=== PATIENT | male | born 1950 | race Caucasian/White ===

== ENCOUNTER 2018-12-26 18:09 | Inpatient (IN) ==
--- NOTE | 2018-12-26 20:25 | Diag Imaging Result Doc PS360 ---
CHEST-1 VIEW - 12/26/2018 INDICATION: hypoxia COMPARISON: 06/21/2015 FINDINGS: There is some multifocal linear atelectasis in the lung bases. No infiltrates or edema. No pneumothorax or pleural effusion. Heart size is top normal. IMPRESSION: Linear atelectasis in the lung bases. Electronically signed by Rojas Harrison 12/26/2018 8:23 PM
[2018-12-26 20:35] LABS: ALLEN TEST YES; BE 7.6 mmoll (-3.0-3.0); BLOOD TYPE ARTERIAL; HCO3-(ACT) 30.8 mmoll (20.0-26.0); METHB 1.1 % (0.0-1.5); O2(CT) 20.4 mL/dL (15.0-23.0); O2HB 96.6 % (95.0-99.0); PO2(98.6) 163 mmHg (60-100); SAMPLE BLOOD; SAO2 99.5 % (95.0-100.0); THB 14.8 g/dL (11.5-17.4); pH(98.6) 7.33 (7.35-7.45)
[2018-12-26 20:37] LABS: MODALITY COOL AEROSOL
[2018-12-26 20:38] LABS: PCO2(98.6) 69 mmHg (35-45)
[2018-12-26 20:58] LABS: INR 1.01; PROTIME 14.2 Seconds (11.0-16.0)
[2018-12-26 20:59] LABS: PTT 28.4 Seconds (22.3-41.8)
[2018-12-26 21:06] LABS: AGAP 13; ALB/GLOB RATIO 1.1; ALBUMIN 3.7 g/dL (3.5-5.0); ALKALINE PHOSPHATASE 157 U/L (32-122); BUN 14 mg/dL (8-22); CALCIUM 8.9 mg/dL (8.8-10.2); CHLORIDE 95 mmol/L (98-107); CK PROFILE 84 U/L (24-204); COSMO 283; ESTIMATED GFR > 60; GLUCOSE 217 mg/dL (70-104); GOT 28 U/L (10-34); GPT 36 U/L (10-44); POTASSIUM 4.5 mmol/L (3.5-5.1); SODIUM 138 mmol/L (136-145); TCO2 30 mmol/L (25-35); TOTAL BILIRUBIN 0.37 mg/dL (0.20-1.00); TOTAL PROTEIN 7.2 g/dL (6.3-8.3)
[2018-12-26 21:16] LABS: BASO# 0.02 X1000 (0.0-0.2); BASO% 0.1 % (0.0-0.8); HEMATOCRIT 45.3 % (42.0-52.0); HEMOGLOBIN 14.4 g/dL (14.0-18.0); IMM GRAN# 0.02 X1000 (0.0-0.04); IMM GRAN% 0.1 % (0.0-0.5); LYMPH# 1.03 X1000 (1.2-3.4); LYMPH% 6.8 % (20.5-51.1); MCH 28.3 PG (27-31); MCHC 31.8 g/dL (33-37); MCV 89.2 FL (81-99); MONO# 0.17 X1000 (0.11-0.59); MONO% 1.1 % (1.7-9.3); MPV 10.1 FL (7.4-10.4); NEUT# 13.85 X1000 (1.4-6.5); NEUT% 91.9 % (42.2-75.2); PLT 238 X1000 (130-400); RBC 5.08 XMIL (4.7-6.1); RDW 13.4 % (11.5-14.5); WBC 15.09 X1000 (4.8-10.8)
[2018-12-26] MEDS ORDERED: NITROGLYCERIN SL PRN (21:37)
[2018-12-26] MEDS ORDERED: ROCEPHIN 1 GM in NS 50 ML IV ONE (21:40)
[2018-12-26 21:43] LABS: LYMPHS 8 % (21-51); MONO 1 % (1-9); SEGS 91 % (42-75)
--- NOTE | 2018-12-26 22:12 | PROGRESS NOTE ---
DATE: 12/26/2018 SUBJECTIVE: A 68-year-old status post septoplasty and endoscopic sinus surgery. Postoperatively had persistent hypoxia and was admitted for observation overnight. OBJECTIVE: On physical exam, he has been doing well, has minimal bleeding from the nasal cavity. It is appropriate for postoperative nasal surgery. He is alert and without nausea and vomiting. IMPRESSION: Satisfactory postop. PLAN: Continue O2 monitoring during the evening, hopefully discharge tomorrow depending on medical evaluation. cc: MD Faustino Patel MD
--- NOTE | 2018-12-26 22:22 | HISTORY AND PHYSICAL ---
CHIEF COMPLAINT: Shortness of breath. HISTORY OF PRESENT ILLNESS: Mr. Robles is a 68-year-old white gentleman, problem with chronic sinus infection and sinusitis. Patient went for sinus surgery today. After surgery, patient's oxygen saturation was staying low. The patient also had some oozing from the sinuses and ENT surgeon and forgeman helper decided to admit the patient for observation, and I was called to admit the patient for the same. The patient denied any chest pain. No fever or chills. The patient was requiring higher concentration of oxygen to keep his O2 saturation satisfactory. He denied any cough or expectoration. The patient had nasal packing done by history, and he had some dressing on his nose. No unusual cough, expectoration, or hemoptysis. Denied any fever or chills. No abdominal pain, nausea, vomiting. No diarrhea, blood, or mucus in the stool. No history suggestive of DVT or pulmonary embolism. The patient does have a complex medical history in the form of coronary artery disease and stent placement, morbid obesity, recurrent sinus infections and allergies, osteoarthritis, dyspnea on exertion. The patient also has IDDM. He denied any dysuria or hematuria. No diarrhea alternating with constipation. No dysphagia or odynophagia. ALLERGIES: No known drug allergy. MEDICATIONS: Include Glucophage, diltiazem, Coreg, Zestoretic, doxazosin, lovastatin, aspirin. PAST MEDICAL HISTORY: The patient had back surgery done in March The patient had heart attack and stent placement, morbid obesity, osteoarthritis, NIDDM, hypertension, hyperlipidemia, history suggestive of BPH. PERSONAL HISTORY: , lives with the . Nonsmoker. Denied alcohol or substance abuse. FAMILY HISTORY: Significant for heart disease and breast cancer. REVIEW OF SYSTEMS: As per HPI. The patient does have dyspnea on exertion, arthritic pain in the back and the knee, obesity, at times polyuria and polydipsia. Review of systems as per HPI. PHYSICAL EXAMINATION: GENERAL: Elderly white gentleman, morbidly obese, in mild distress. VITAL SIGNS: Noted. SKIN: No rash or petechiae. HEENT: Head atraumatic, normocephalic. [place] conjunctivae. Anicteric sclerae. Pupils reacting to light. NECK: Supple. No JVD, thyromegaly or lymphadenopathy. CHEST: Bibasilar crepitation. No rales. CARDIOVASCULAR: S1 and S2 heard. No gallop or thrill. ABDOMEN: Soft, globular. Bowel sounds present. No organomegaly or mass. EXTREMITIES: No cyanosis, clubbing. Minimal swelling. No acute DVT. CENTRAL NERVOUS SYSTEM: Alert, awake, able to move all 4 limbs. Crepitation in both the knee joints. The patient does have dressing on his nose. CONSIDERATION: Patient admitted with hypoxemia. His other problems include: 1. Hypertension. 2. Coronary artery disease. 3. Morbid obesity. 4. Insulin-dependent diabetes mellitus. 5. Gastritis and reflux disease. 6. Low back pain. 7. Benign prostatic hypertrophy. PLAN: Admit the patient. Oxygen. We will monitor O2 saturation continuously. Bronchodilator treatment. Close observation. Continue home medicine. I did check his labs. The patient does have leukocytosis with left shift. Electrolytes were fairly benign. PT and PTT: INR was 1.01. PTT was 28.4. Blood gas pH 7.33, pCO2 of 69, pO2 was 163. I decreased FiO2 to 70%. Started patient on bronchodilator treatment. We will monitor his Accu-Chek. ProBNP was 469. Overall plan discussed at length with patient and the , and they are in agreement. cc: MD Faustino Cameron MD MTDD
[2018-12-26] MEDS: DUONEB (A & A) INH SCH (23:12)
[2018-12-27] MEDS: TYLENOL PO PRN (00:44)
[2018-12-27] MEDS: DUONEB (A & A) INH SCH ×5 (03:09→20:10)
[2018-12-27] MEDS: CARDURA PO SCH ×3 (04:01→22:06)
--- NOTE | 2018-12-27 07:08 | EKG Report ---
Test Performed on : 12/26/2018 8:29:09 PM Test Reason : hypoxia Blood Pressure : / mmHG Vent. Rate : 099 BPM Atrial Rate : 099 BPM P-R Int : 168 ms QRS Dur : 094 ms QT Int : 380 ms P-R-T Axes : 050 009 055 degrees QTc Int : 487 ms Sinus rhythm. with occasional premature ventricular complexes. Cannot rule out Inferior infarct , age undetermined Abnormal ECG When compared with ECG of 21-JUN-2015 09:40, No significant change was found Confirmed by Carissa JARA, [place] ([id number]) on 12/27/2018 8:43:50 AM
--- NOTE | 2018-12-27 07:36 | PROGRESS NOTE ---
DATE: 12/27/2018 SUBJECTIVE: Postop today #1. Patient doing very well. No significant bleeding. There is a ooze from the nasal cavity which is normal postoperative oozing. The seems to be feeling well. IMPRESSION: Satisfactory postoperative plan. From a surgical standpoint he is ready to go home. Will await clearance from a pulmonary status. cc: MD Faustino Patel MD
[2018-12-27 07:56] LABS: BASO# 0.01 X1000 (0.0-0.2); BASO% 0.1 % (0.0-0.8); HEMATOCRIT 43.1 % (42.0-52.0); HEMOGLOBIN 13.7 g/dL (14.0-18.0); IMM GRAN# 0.02 X1000 (0.0-0.04); IMM GRAN% 0.2 % (0.0-0.5); LYMPH# 0.94 X1000 (1.2-3.4); LYMPH% 7.3 % (20.5-51.1); MCH 28.7 PG (27-31); MCHC 31.8 g/dL (33-37); MCV 90.2 FL (81-99); MONO# 0.64 X1000 (0.11-0.59); MONO% 4.9 % (1.7-9.3); MPV 10.2 FL (7.4-10.4); NEUT# 11.32 X1000 (1.4-6.5); NEUT% 87.5 % (42.2-75.2); PLT 243 X1000 (130-400); RBC 4.78 XMIL (4.7-6.1); RDW 13.6 % (11.5-14.5); WBC 12.93 X1000 (4.8-10.8)
[2018-12-27 08:35] LABS: BANDS 4 % (0-1); LYMPHS 8 % (21-51); MONO 2 % (1-9); SEGS 86 % (42-75)
[2018-12-27 08:37] LABS: AGAP 12; ALB/GLOB RATIO 1.3; ALKALINE PHOSPHATASE 141 U/L (32-122); BUN 16 mg/dL (8-22); CALCIUM 8.8 mg/dL (8.8-10.2); CHLORIDE 95 mmol/L (98-107); COSMO 283; CREATININE 0.9 mg/dL (0.7-1.2); ESTIMATED GFR > 60; GLUCOSE 173 mg/dL (70-104); GOT 22 U/L (10-34); GPT 31 U/L (10-44); POTASSIUM 4.4 mmol/L (3.5-5.1); SODIUM 139 mmol/L (136-145); TCO2 32 mmol/L (25-35); TOTAL BILIRUBIN 0.26 mg/dL (0.20-1.00)
[2018-12-27] MEDS: PRINZIDE 20/12.5MG PO SCH (10:10)
[2018-12-27] MEDS: GLUCOPHAGE PO SCH ×2 (10:11→18:05)
[2018-12-27] MEDS: THERA M PLUS PO SCH (10:11)
[2018-12-27] MEDS: COREG PO SCH ×2 (10:11→22:07)
[2018-12-27] MEDS: CARDIZEM CD PO SCH ×2 (10:20→22:06)
[2018-12-27] MEDS: MEVACOR PO SCH (18:06)
[2018-12-27] MEDS ORDERED: SODIUM CHLORIDE 0.9% INJ SCH (21:15)
--- NOTE | 2018-12-27 21:56 | PROGRESS NOTE ---
DATE: 12/27/2018 SUBJECTIVE: A 68-year-old white male admitted to the hospital after sinus surgery with hypoxemia. I appreciate Dr. Godfrey and Dr. Prescott. The patient is sitting in upright position, awake. His nose is packed with a gauze pack. Some drainage noted. He is also on aerosol breathing to the mouth. REVIEW OF SYSTEMS: None reported. PAST MEDICAL HISTORY: Reviewed. PAST SURGICAL HISTORY: Reviewed. MEDICINES: Reviewed. ALLERGIES: Not known. OBJECTIVE: Vital signs: Temperature is 97 degrees, pulse is 80, blood pressure 146/91, on the mask 91% and morbidly obese. Chest: Bilateral air entry. Cardiovascular: Heart sounds are regular with a very distant murmur in the aortic area. Abdomen: Belly is soft, obese, nontender. Good bowel sounds. No obvious neurological deficits. INVESTIGATIONS: CBC: White cell count 12.9, hematocrit 43, platelets 243,000. ABG: pH is 7.33, pCO2 69, and pO2 163. SMA 7 is normal, glucose 173. LFTs were normal. Chest x-ray: Linear atelectasis in the lung bases. ASSESSMENT AND PLAN: 1. Status post sinus surgery with hypoxemia. Incentive spirometry. Reconcile home medications. 2. Type 2 diabetes on metformin. 3. Right internal carotid stenosis. Hemodynamics significance under the care of Dr. Collazo. 4. Aortic stenosis, stable, under the care of Dr. Verdugo. Continue present treatment. The patient is encouraged to use incentive spirometry. 5. He is high risk for deep venous thrombosis. Continue on Lovenox as well as Protonix. LEVEL OF DOCUMENTATION: 35 minutes. cc: Faustino Nelson MD
[2018-12-27] MEDS: PROTONIX IV SCH (22:06)
[2018-12-27] MEDS: LOVENOX SUBQ SCH (22:07)
[2018-12-28] MEDS: DUONEB (A & A) INH SCH ×7 (01:25→23:45)
[2018-12-28] MEDS ORDERED: ATIVAN IV PRN (03:43)
[2018-12-28] MEDS ORDERED: ATIVAN IV ONE (03:43)
[2018-12-28 06:42] LABS: ALLEN TEST YES; BE 11.2 mmoll (-3.0-3.0); BLOOD TYPE ARTERIAL; HCO3-(ACT) 33.7 mmoll (20.0-26.0); PO2(98.6) 129 mmHg (60-100); SAMPLE BLOOD; pH(98.6) 7.46 (7.35-7.45)
[2018-12-28 06:43] LABS: MODALITY COOL AEROSOL; PCO2(98.6) 52 mmHg (35-45)
[2018-12-28] MEDS: PRINZIDE 20/12.5MG PO SCH (08:51)
--- NOTE | 2018-12-28 08:51 | EKG Report ---
Test Performed on : 12/28/2018 08:42:05 AM Test Reason : chest pain Blood Pressure : / mmHG Vent. Rate : 091 BPM Atrial Rate : 091 BPM P-R Int : 000 ms QRS Dur : 098 ms QT Int : 364 ms P-R-T Axes : 000 017 089 degrees QTc Int : 447 ms Accelerated Junctional rhythm. with occasional premature ventricular complexes. ST & T wave abnormality, consider lateral ischemia Abnormal ECG When compared with ECG of 26-DEC-2018 20:29, Junctional rhythm. has replaced Sinus rhythm. Confirmed by Carissa JARA, Stanley ([id number]) on 12/28/2018 8:58:13 AM
[2018-12-28] MEDS: GLUCOPHAGE PO SCH ×2 (08:52→18:24)
[2018-12-28] MEDS: CARDIZEM CD PO SCH ×2 (08:52→21:35)
[2018-12-28] MEDS: COREG PO SCH ×2 (08:52→21:35)
[2018-12-28] MEDS: THERA M PLUS PO SCH (08:52)
[2018-12-28] MEDS: CARDURA PO SCH ×2 (08:52→21:36)
[2018-12-28 09:40] LABS: CK INDEX 1.8 (0.0-2.5); CK-MB 7.9 ng/mL (0.0-5.0)
--- NOTE | 2018-12-28 14:54 | CONSULTATION ---
DATE OF CONSULTATION: 12/28/2018 IMPRESSIONS: 1. Shortness of breath and hypoxia. Suspect more likely to be due to upper respiratory issues and possible obstructive sleep apnea. Recent cardiology evaluation demonstrated normal left ventricular function and mild aortic stenosis. 2. Status post sinus surgery. 3. Mild coronary atherosclerosis. Patient continues without angina. 4. Morbid obesity. 5. Probable obstructive sleep apnea. 6. Hyperlipidemia. 7. Bilateral carotid disease. 8. Peripheral vascular disease. RECOMMENDATIONS: 1. Obtain PA and lateral chest x-ray. 2. Continue current cardiovascular regimen, unchanged. HISTORY: This 68-year-old white male with a past history of mild coronary atherosclerosis, mild aortic stenosis, morbid obesity, hypertension, and peripheral vascular disease was admitted recently for further management of chronic sinus infection and sinusitis. He has had sinus surgery and his nose is packed. He said some difficulty with hypoxemia postoperatively. He was admitted for observation. There has been no orthopnea nor chest discomfort. He denies any cough. He has history of mild coronary atherosclerosis. He has not had any angina. He recently had echocardiography which indicated normal left ventricular ejection fraction and mild aortic stenosis with a calculated aortic valve area 1.6 cm2. PAST MEDICAL HISTORY: 1. Mild coronary atherosclerosis. 2. Hypertension. 3. Morbid obesity. 4. Type 2 diabetes mellitus, requiring insulin for control. 5. Gastroesophageal reflux disease. 6. Chronic back disorder. 7. Mild aortic stenosis. 8. Peripheral vascular disease including bilateral carotid artery disease. This has been followed by Dr. nesbitt. PAST SURGICAL HISTORY: 1. Previous coronary angioplasty. 2. Unspecified back surgery. ALLERGIES: No known drug allergies. MEDICATIONS PRIOR TO ADMISSION: As listed. SOCIAL HISTORY: He is and lives with his . He does not smoke or use alcohol. FAMILY HISTORY: Positive for coronary disease. REVIEW OF SYSTEMS: Pulmonary: Noteworthy for some shortness of breath. There has been no cough. Gastrointestinal: Noncontributory beyond history present illness. Constitutional: Noncontributory beyond history present illness with 14 total systems reviewed. PHYSICAL EXAMINATION: General: Reveals a morbidly obese, older white male in no distress on supplemental oxygen. Vital signs: Blood pressure 120/66, heart rate 96, oxygen saturation 91 to 98% on supplemental oxygen per mask, which he inconsistently wears. HEENT: Noteworthy that patient has his nose packed with gauze. Mucous membranes are moist. Neck: Supple. Jugular distention cannot be appreciated. Chest: Clear to auscultation bilaterally. Cardiac Exam: Reveals a regular rate and rhythm without appreciable murmur or gallop. Abdomen: Soft. Bowel sounds are normal. Extremities: Without edema. With chronic venous stasis changes. Neurologic: Reveals him to be alert and fully oriented. Speech is fluent. He moves all 4 extremities equally well. Skin: Warm and dry. Psychiatric: Reveals his mood to be appropriate. PERTINENT DATA: Twelve lead EKG demonstrates baseline artifact. Normal sinus rhythm. Occasional premature ventricular complex and mild nonspecific ST and T-wave abnormality. LABORATORY DATA: Includes a white blood cell count of 12.93, hematocrit 43.1, hemoglobin 13.7, platelet count 243,000. Troponin T less than 0.01. CPK 446. Sodium 139, potassium 4.4, chloride 95, carbon dioxide 32, BUN 16, creatinine 0.9, glucose 173. cc: MD Faustino Haines MD
--- NOTE | 2018-12-28 15:22 | Diag Imaging Result Doc PS360 ---
EXAM: CHEST-2 VIEWS 12/28/2018 HISTORY: dyspnea TECHNIQUE: Two views the chest COMMENT: There is a calcified granuloma in the anterior right lower lobe. There are some linear opacities present in the left lower lobe which were not as prominently seen on 06/21/2015 and may be related to atelectasis or pneumonia. IMPRESSION: Atelectasis versus pneumonia left lower lobe. Electronically signed by Braxton Licona 12/28/2018 3:20 PM
[2018-12-28] MEDS: MEVACOR PO SCH (18:24)
--- NOTE | 2018-12-28 20:04 | PROGRESS NOTE ---
DATE: 12/28/2018 SUBJECTIVE: The patient last night was confused, belligerent. is at bedside. She is concerned about cardiac workup. The patient is stable. He is alert. He is still on aerosol mask. I decreased to 35%. OBJECTIVE: Temperature is 98 degrees, pulse is 74, blood pressure 120/63. HEENT exam: He is on mask. Poor air entry. Distant heart sounds. ASSESSMENT AND PLAN: 1. Altered mental status, basically due to metabolic encephalopathy and due to carbon dioxide narcosis. 2. Status post sinus surgery, stable. 3. Decreased FIO2 to 35%. 4. History of coronary artery disease, hypoxemia. At the request of the patient's , we will consult Dr. Rincon. Electrocardiogram normal sinus, some premature ventricular contractions. Follow up on cardiac enzymes. 5. Follow up chest x-ray. Possible left lower lobe pneumonia. Incentive spirometry. Out of the bed and continue present treatment. We will also initiate intravenous antibiotics. Level of documentation was 25 minutes. cc: Faustino Nelson MD
[2018-12-28] MEDS: LEVAQUIN 500 MG/D5W 500 MG/100 ML IVPB IV SCH (20:40)
[2018-12-28] MEDS: PROTONIX IV SCH (21:35)
[2018-12-28] MEDS: LOVENOX SUBQ SCH (21:36)
[2018-12-28] MEDS: TYLENOL PO PRN (21:36)
[2018-12-29] MEDS: DUONEB (A & A) INH SCH ×6 (04:06→23:40)
[2018-12-29] MEDS: GLUCOPHAGE PO SCH ×2 (09:05→17:02)
[2018-12-29] MEDS: PRINZIDE 20/12.5MG PO SCH (09:05)
[2018-12-29] MEDS: COREG PO SCH ×2 (09:05→20:14)
[2018-12-29] MEDS: CARDIZEM CD PO SCH ×2 (09:05→20:14)
[2018-12-29] MEDS: THERA M PLUS PO SCH (09:05)
[2018-12-29] MEDS: CARDURA PO SCH ×2 (09:09→20:14)
[2018-12-29] MEDS ORDERED: AYR NASAL SPRAY NAS PRN (16:56)
[2018-12-29] MEDS: MEVACOR PO SCH (17:02)
--- NOTE | 2018-12-29 20:12 | PROGRESS NOTE ---
DATE: 12/29/2018 SUBJECTIVE: The patient is out of the bed. The nasal pack was removed. The patient's a nasal spray. Dr. Prescott is at bedside. No chest pain, no shortness of breath, no agitation. PHYSICAL EXAMINATION: Vitals: Stable. General: Morbidly obese. Lungs: Poor air entry. Cardiovascular: Heart sounds are distant. ASSESSMENT AND PLAN: 1. Acute respiratory failure due to Pickwickian syndrome. Wean off FiO2. We will get an ABG on room air in the morning. 2. Left lower lobe aspiration. We will give IV antibiotics. 3. Status post sinus surgery, stable. 4. Deep venous thrombosis prophylaxis with Lovenox. 5. Continue emergent treatment for underlying medical problems, and if he is stable tomorrow, will discharge. LEVEL OF DOCUMENTATION: Twenty-five minutes. cc: Faustino Nelson MD
[2018-12-29] MEDS: TYLENOL PO PRN (20:13)
[2018-12-29] MEDS: LOVENOX SUBQ SCH (20:15)
[2018-12-29] MEDS: PROTONIX IV SCH (20:15)
[2018-12-29] MEDS: LEVAQUIN 500 MG/D5W 500 MG/100 ML IVPB IV SCH (20:30)
[2018-12-30] MEDS: DUONEB (A & A) INH SCH ×2 (03:45→07:32)
[2018-12-30 05:59] LABS: ALLEN TEST YES; BE 7.6 mmoll (-3.0-3.0); BLOOD TYPE ARTERIAL; HCO3-(ACT) 30.6 mmoll (20.0-26.0); METHB 0.9 % (0.0-1.5); MODALITY ROOM AIR; O2(CT) 19.5 mL/dL (15.0-23.0); O2HB 90.4 % (95.0-99.0); PCO2(98.6) 49 mmHg (35-45); PO2(98.6) 56 mmHg (60-100); SAMPLE BLOOD; SAO2 92.9 % (95.0-100.0); THB 15.4 g/dL (11.5-17.4); pH(98.6) 7.44 (7.35-7.45)
[2018-12-30] MEDS: GLUCOPHAGE PO SCH (08:02)
[2018-12-30] MEDS: CARDIZEM CD PO SCH (08:02)
[2018-12-30] MEDS: COREG PO SCH (08:02)
[2018-12-30] MEDS: PRINZIDE 20/12.5MG PO SCH (08:02)
[2018-12-30] MEDS: THERA M PLUS PO SCH (08:02)
[2018-12-30] MEDS: CARDURA PO SCH (08:05)
[2018-12-30 08:27] VITALS: BP 126/68
--- NOTE | 2018-12-31 12:19 | DISCHARGE SUMMARY ---
ADMISSION DATE: 12/26/2018 DISCHARGE DATE: 12/30/2018 DISCHARGING DIAGNOSIS: Acute respiratory failure due to obstructive sleep apnea and airway obstruction from recent sinus surgery. SECONDARY DIAGNOSES: 1. Pickwickian syndrome with retention of CO2. 2. Mild aortic stenosis. 3. Hemodynamic stenosis of right internal carotid artery, under the care of Dr. Collazo. 4. Type 2 diabetes. 5. Hypertension. 6. Benign prostatic hypertrophy. 7. Hyperlipidemia. 8. Osteoarthritis. 9. Coronary artery disease with multiple stents, under the care of Dr. Verdugo. CONSULTS: 1. Dr. Juvencio Prescott. 2. Dr. Matthew Rincon. BRIEF HISTORY: Please see the H and P that was done by Dr. Zhane john. In brief, he is a 68- year-old white gentleman, recently had a sinus surgery and during recovery time he was hypoxic, admitted to the hospital. Nasal packing was done. He was breathing through the mouth and he was slightly Pickwickian syndrome retaining CO2, got confused and hypoxic. The patient was admitted to the hospital for observation. He also developed some aspiration for which he was given IV Levaquin. The patient was given incentive spirometry. As the nasal packing removed, he was breathing on through the nose and PO2 was 56 on room air. He was not using home oxygen before. The patient's thinks he needs to check out his heart. Dr. Rincon was consulted. At this time, his EKG is unremarkable. Cardiac enzymes were negative. He is asymptomatic. DISCHARGE DISPOSITION: Patient was discharged home in a stable condition. LABORATORY DATA: CBC: White cell count 12.9, hematocrit 43, platelets 243,000. ABG on room air, pH is 7.44, pCO2 49, PO2 56 on room air. SMA-7: Sodium 139, potassium 4.4, BUN 16, creatinine 0.9. CK is slightly high. MB is normal, troponin was normal. IMAGING: Chest x-ray,m possible left lower lobe infiltrate. DISCHARGE INSTRUCTIONS: 1. Incentive spirometry. 2. Aspirin 325 daily, multivitamin 1 tablet daily, Mevacor 20 mg at bedtime, lisinopril/hydrochlorothiazide 20/12.5 p.o. b.i.d., Coreg 3.125 p.o. b.i.d., metformin 500 p.o. b.i.d., nitroglycerin as needed, Cardizem 240 daily, doxazosin 1 mg p.o. b.i.d., Levaquin 500 daily for 10 days. FOLLOWUP: 1. Follow up with Dr. Prescott. 2. Follow up with Dr. Collazo for right internal carotid artery stenosis. 3. Follow up in my office next week. cc: MD Mario Villatoro MD William D. Denney, MD George H. Godwin, MD Robert C. Walker, MD
== END 2018-12-30 10:31 | disposition home or self-care (01) | DRG 189 ==
LOC: DIRADM → OBSVTOIN 18:09 → 3N 19:35
PROVIDERS: ADMIT Internal Medicine; ATTEND Internal Medicine
CPT/HCPCS: 71010; 71020; 71045; 71046; 80053; 82550; 82553; 82805; 82948; 83880; 84484; 85025; 85610; 85730; 93005; 93010; 94640; 94760; 94762; 94799; A9270; C9113; J0696; J1650; J1956; J2060; S0164; XXXXX

== ENCOUNTER 2019-06-10 00:49 | Inpatient (IN) ==
[2019-06-10 01:37] LABS: BASO# 0.04 X1000 (0.0-0.2); BASO% 0.3 % (0.0-0.8); EOS# 0.19 X1000 (0.0-0.7); EOS% 1.5 % (0.0-10.0); HEMATOCRIT 44.6 % (42.0-52.0); HEMOGLOBIN 14.4 g/dL (14.0-18.0); IMM GRAN# 0.02 X1000 (0.0-0.04); IMM GRAN% 0.2 % (0.0-0.5); LYMPH# 1.92 X1000 (1.2-3.4); LYMPH% 15.1 % (20.5-51.1); MCH 28.7 PG (27-31); MCHC 32.3 g/dL (33-37); MONO# 1.19 X1000 (0.11-0.59); MONO% 9.4 % (1.7-9.3); MPV 10.2 FL (7.4-10.4); NEUT# 9.33 X1000 (1.4-6.5); NEUT% 73.5 % (42.2-75.2); PLT 266 X1000 (130-400); RBC 5.01 XMIL (4.7-6.1); RDW 13.4 % (11.5-14.5); WBC 12.69 X1000 (4.8-10.8)
[2019-06-10 01:59] LABS: AGAP 14; ALB/GLOB RATIO 1.5; ALBUMIN 4.3 g/dL (3.5-5.0); ALKALINE PHOSPHATASE 162 U/L (32-122); BUN 16 mg/dL (8-22); CALCIUM 8.7 mg/dL (8.8-10.2); CHLORIDE 96 mmol/L (98-107); CK PROFILE 89 U/L (24-204); COSMO 286; CREATININE 0.9 mg/dL (0.7-1.2); ESTIMATED GFR > 60; GLUCOSE 171 mg/dL (70-104); GOT 17 U/L (10-34); GPT 24 U/L (10-44); POTASSIUM 3.5 mmol/L (3.5-5.1); SODIUM 141 mmol/L (136-145); TCO2 31 mmol/L (25-35); TOTAL PROTEIN 7.1 g/dL (6.3-8.3)
--- NOTE | 2019-06-10 06:18 | EKG Report ---
Test Performed on : 06/10/2019 01:00:32 AM Test Reason : SOB Blood Pressure : / mmHG Vent. Rate : 089 BPM Atrial Rate : 089 BPM P-R Int : 164 ms QRS Dur : 106 ms QT Int : 380 ms P-R-T Axes : 049 038 075 degrees QTc Int : 462 ms Sinus rhythm. with frequent premature ventricular complexes. Nonspecific ST and T wave abnormality Abnormal ECG When compared with ECG of 10-JUN-2019 00:59, (Unconfirmed) Sinus rhythm. has replaced Junctional rhythm. Criteria for Septal infarct are no longer present Unconfirmed Result
--- NOTE | 2019-06-10 06:28 | PROVIDER DOCUMENTATION ---
This chart was entered by Pat Rubio Scribe, acting as scribe for Raúl Quiroz DO. HPI-Respiratory General - General Chief Complaint: Shortness of Breath Stated Complaint: BREATHING ISSUES Time Seen by Provider: 06/10/19 01:10 Source: patient Allergies/Adverse Reactions: Patient Allergies Allergy/AdvReac Type Severity Reaction Status Date / Time No Known Allergies Allergy Verified 08/04/15 15:48 Home Medications: Home Medication List Medication Instructions Recorded Confirmed Last Taken Type Aspirin 325 mg PO DAILY 09/18/12 12/26/18 08/04/15 08:00 History Carvedilol [Coreg] 3.125 mg PO BID 09/18/12 12/26/18 1 Day Ago History ~12/25/18 LOVAstatin [Mevacor] 20 mg PO WSUPPER 09/18/12 12/26/18 1 Day Ago History ~12/25/18 Lisinopril/Hydrochlorothiazide 1 tab PO BID 09/18/12 12/26/18 1 Day Ago History [Lisinopril-Hctz 20-12.5 mg Tab] ~12/25/18 Metformin [Glucophage] 500 mg PO BID 09/18/12 12/26/18 1 Day Ago History ~12/25/18 Multivitamin with Minerals [One 1 each PO DAILY 09/18/12 12/26/18 1 Day Ago History Daily Adults] ~12/25/18 Nitroglycerin 0.3 mg SL DIRECTED PRN PRN 06/21/15 12/26/18 06/21/15 History 0800 Acetaminophen [Tylenol] 500 mg PO Q6H PRN PRN #30 tablet 08/04/15 Unknown Rx Diltiazem HCl [Cartia Xt] 1 cap PO DAILY 12/26/18 12/26/18 1 Day Ago History ~12/25/18 Doxazosin Mesylate 1 mg PO BID 12/26/18 12/26/18 1 Day Ago History ~12/25/18 Levofloxacin [Levaquin] 500 mg PO DAILY #10 tab 12/30/18 Unknown Rx - History of Present Illness-Resp Nature of Presenting Problem: 68 yowm c/o sob starting earlier today. pt sts no symptoms when waking this am. pt has an occasional cough. pt denies cp, diaphoresis and nausea. pt has hx of dm, htn, and OR in 2004 w/3 stents. pt pcp is Dr. Nelson, Dr. Verdugo is rate manager and Dr. Prescott is ENT. pt is a former smoker, quit in . pt blood pressure in room is high, 218/89 and not above 85 sat since arrival, o2 placed in room. Quality of Pain: reports: none Severity in ED: reports: mild Onset/Duration: reports: this morning Timing: reports: still present Cough Quality/Degree: reports: mild Associated Symptoms: reports: cough, short of breath. denies: chest pain/soreness Review of Systems - Adult - REVIEW OF SYSTEMS - ADULT Constitutional: reports: no symptoms reported. denies: fever, fatique, night sweats Eyes: reports: no symptoms reported Ears, Nose, Mouth & Throat: reports: no symptoms reported Cardiovascular: reports: no symptoms reported. denies: chest pain, edema, palpitations Respiratory: reports: see HPI, cough (occ), shortness of breath. denies: dyspnea on exertion, excessive sputum production, hemoptysis Gastrointestinal: reports: no symptoms reported. denies: diarrhea, nausea, vomiting Genitourinary: reports: no symptoms reported Musculoskeletal: reports: no symptoms reported Integumentary: reports: no symptoms reported Neurological: reports: no symptoms reported Psychiatric: reports: no symptoms reported Endocrine: reports: no symptoms reported. denies: change in skin pigment, excessive sweating Hematologic/Lymphatic: reports: no symptoms reported Allergic/Immunologic: reports: no symptoms reported All Other Systems: Reviewed and Negative Past History - Adult - PAST MEDICAL HISTORY-ADULT Review of Records: reports: Old Records Reviewed, Nursing Assessment Review, Medications Reviewed, Social history reviewed & non-contributory. Major Childhood Illnesses: reports: denies history Cardiovascular: reports: CAD, HTN, hyperlipidemia Respiratory: reports: denies history Gastrointestinal: reports: denies history Obstetrical/Gynecological: reports: denies history Genitourinary: reports: denies history Musculoskeletal: reports: denies history Neurological: reports: denies history Endocrine/Immune: reports: Diabetes Other Conditions: reports: denies history - PRIOR SURGERIES/PROCEDURES Surgical/Procedure History: reports: cardiac stent, back/neck - IMMUNIZATION STATUS Childhood Immunizations: See Nurse Assessment Flu Vaccine: See Nurse Assessment - FAMILY HISTORY Family History: reviewed, not pertinent - SOCIAL HISTORY Smoking: quit greater than 1 year, other (former) Substance Use: none/never Physical Exam-General - PHYSICAL EXAM-ADULT Initial Vital Signs Reviewed: Yes - CONSTITUTIONAL General Appearance: alert, no apparent distress, obese. negative: lethargic, slow to respond, obtunded - EYES Eyes: PERRL/EOMI, pink conjunctivae - HEAD, EARS, NOSE, MOUTH & THROAT HENMT: normocephalic/atraumatic, moist mucous membranes, normal ENT inspection - NECK Neck: non-tender, full range of motion, supple, normal inspection - RESPIRATORY Respiratory: chest non-tender, lungs clear, no pleuratic chest pain, no respiratory distress, no accessory muscle use, decreased breath sounds (bilat), other (gurgling in throat). negative: normal breath sounds, accessory muscle use, crackles - CARDIOVASCULAR Cardiovascular: normal peripheral pulses, regular rate, rhythm - GASTROINTESTINAL (ABDOMEN) Abdominal Exam: normal bowel sounds, non tender, soft - LYMPHATIC Lymphatic: no adenopathy - MUSCULOSKELETAL Back Exam: normal inspection, no CVA tenderness, no vertebral tenderness Extremity: normal range of motion, non-tender, normal inspection Peripheral Pulses: radial (R): 2+, radial (L): 2+ - SKIN Integumentary: normal color, normal turgor, warm/dry - NEUROLOGIC Neurologic: grossly normal, no motor/sensory deficits - PSYCHIATRIC Psych/Mental Status: normal mood/affect, normal thought content, normal thought process, oriented x 3 Progress - PLAN OF CARE/RESULTS Progress/Plan/Lab Results: Vital Signs - 8 hr 06/10/19 00:55 06/10/19 01:33 06/10/19 02:03 Temperature 98.2 F Pulse Rate 80 85 84 Respiratory Rate 19 19 Blood Pressure 173/73 193/89 192/91 O2 Sat by Pulse Oximetry 87 L 91 L 91 L 06/10/19 02:33 06/10/19 03:03 06/10/19 03:33 Temperature Pulse Rate 82 82 89 Respiratory Rate 20 20 18 Blood Pressure 188/81 188/83 192/92 O2 Sat by Pulse Oximetry 92 L 92 L 90 L 06/10/19 04:00 06/10/19 04:03 06/10/19 04:33 Temperature Pulse Rate 85 87 94 H Respiratory Rate 20 18 25 H Blood Pressure 204/99 181/81 O2 Sat by Pulse Oximetry 89 L 89 L 87 L 06/10/19 05:00 06/10/19 05:02 06/10/19 05:34 Temperature Pulse Rate 87 82 79 Respiratory Rate 17 19 21 Blood Pressure 177/88 200/87 O2 Sat by Pulse Oximetry 89 L 90 L 90 L 06/10/19 06:00 06/10/19 06:03 06/10/19 06:30 Temperature Pulse Rate 87 84 80 Respiratory Rate 22 22 18 Blood Pressure 167/87 O2 Sat by Pulse Oximetry 90 L 91 L 95 06/10/19 06:33 06/10/19 07:00 06/10/19 07:03 Temperature Pulse Rate 86 84 85 Respiratory Rate 23 22 20 Blood Pressure 189/98 194/100 O2 Sat by Pulse Oximetry 87 L 86 L 86 L Laboratory Results - last 24 hr 06/10/19 06/10/19 06/10/19 01:29 01:29 01:29 WBC 12.69 H RBC 5.01 Hgb 14.4 Hct 44.6 MCV 89.0 MCH 28.7 MCHC 32.3 L RDW Std Deviation 13.4 Plt Count 266 MPV 10.2 Immature Gran % (Auto) 0.2 Neut % (Auto) 73.5 Lymph % (Auto) 15.1 L [place] % (Auto) 9.4 H Eos % (Auto) 1.5 Baso % (Auto) 0.3 Immature Gran # (Auto) 0.02 Neut # (Auto) 9.33 H Lymph # (Auto) 1.92 [place] # (Auto) 1.19 H Eos # (Auto) 0.19 Baso # (Auto) 0.04 Sodium 141 Potassium 3.5 Chloride 96 L Carbon Dioxide 31 Anion Gap 14 BUN 16 Creatinine 0.9 Estimated GFR/1.73 m2 > 60 BUN/Creatinine Ratio 18 Glucose 171 H Calculated Osmolality 286 Calcium 8.7 L Total Bilirubin 0.40 AST 17 ALT 24 Alkaline Phosphatase 162 H Creatine Kinase 89 Troponin T < 0.010 Qik-E-Zkplnqitjhl Pept Total Protein 7.1 Albumin 4.3 Globulin 2.8 Albumin/Globulin Ratio 1.5 06/10/19 01:29 WBC RBC Hgb Hct MCV MCH MCHC RDW Std Deviation Plt Count MPV Immature Gran % (Auto) Neut % (Auto) Lymph % (Auto) [place] % (Auto) Eos % (Auto) Baso % (Auto) Immature Gran # (Auto) Neut # (Auto) Lymph # (Auto) [place] # (Auto) Eos # (Auto) Baso # (Auto) Sodium Potassium Chloride Carbon Dioxide Anion Gap BUN Creatinine Estimated GFR/1.73 m2 BUN/Creatinine Ratio Glucose Calculated Osmolality Calcium Total Bilirubin AST ALT Alkaline Phosphatase Creatine Kinase Troponin T Gej-L-Pzgfqwdaaim Pept 625 H Total Protein Albumin Globulin Albumin/Globulin Ratio Orders Category Date Time Status Admit - [facility] Routine AdmDCTranf 06/10/19 07:17 Active Activity - Bed Rest with BRP ORDERED Care 06/10/19 07:17 Active Vital Signs Order ORDERED Care 06/10/19 07:17 Active Regular Diet Diet 06/10/19 Diet Enter Time Active CHEST-PORTABLE [RAD] Stat Exams 06/10/19 01:20 Completed CBC WITH ELECTRONIC DIFF [HEME] Stat Lab 06/10/19 01:29 Completed CK PROFILE [SP CHEM] Stat Lab 06/10/19 01:29 Completed COMPREHENSIVE METABOLIC PANEL [CHEM] Stat Lab 06/10/19 01:29 Completed TROPONIN T Stat Lab 06/10/19 01:29 Completed pro-bnp [PRO B-NATRIURETIC PEPTIDE] Stat Lab 06/10/19 01:29 Completed 0.9% Sodium Chloride Inj [Ns] 1,000 ml Med 06/10/19 07:17 Active IV 85 mls/hr Albuterol [Albuterol Neb] Med 06/10/19 06:29 Discontinued 2.5 mg INH NOW ONE CefTRIAXONE [Rocephin] 1 gm Med 06/10/19 06:38 Discontinued 0.9% Sodium Chloride Inj [Ns] 50 ml IV NOW Aerosol Treatments Routine Oth 06/10/19 06:30 Completed Aerosol Treatments Stat Oth 06/10/19 06:30 Completed Oxygen Device Routine Oth 06/10/19 07:18 Active EKG [EKG] Stat Ther 06/10/19 00:51 Draft Transfer/Admit Order [TRANSFER] Routine Transfer 06/10/19 07:27 Ordered Result Diagrams: 06/10/19 01:29 06/10/19 01:29 - EKG 1 Time of EKG reading by physician:: 01:00 EKG Read and Signed by:: Raúl Quiroz EKG Interpretation (*Must complete 3 of following elements*): Abnormal Rate: 89 Rhythm: SR w/ freq PVC's [place]: normal QRS: normal WI Interval: normal ST Wave: non-specific ST changes (nonspecific st and t wave abnormality) Prior EKG Comparison: changes noted (more PVC's than prev EKGs) Departure - Departure Date of Disposition Decision: 06/10/19 Time of Disposition Decision: 07:27 DIAGNOSIS: Hypoxia Disposition: ADMITTED INPATIENT 09 Certified Medical Emergency: Emergent Condition: Fair Referrals and Follow-Ups: Nneka Nelson MD [Primary Care Provider] - - Critical Care Note This patient required my direct & personal management of CC.: No Attestation - Physician/ DIAMANTE Attestation Patient care was provided by Advanced Practice Provider:: No The physician spent face to face time with patient:: Yes Advanced Practice Provider documentation review:: Supervising physician onsite and consulted in the evaluation and care of this patient. The physician did have a face to face encounter with the patient. This chart was documented by the indicated scribe, (Pat Rubio Scribe) and accurately reflects the services I performed and decisions made by , Raúl Quiroz DO, as attested by the provider's signature.
[2019-06-10] MEDS ORDERED: ALBUTEROL NEB INH ONE (06:29)
[2019-06-10] MEDS ORDERED: ROCEPHIN 1 GM in NS 50 ML IV ONE (06:38)
--- NOTE | 2019-06-10 07:11 | Diag Imaging Result Doc PS360 ---
EXAM: CHEST-PORTABLE 06/10/2019 HISTORY: shortness of breath TECHNIQUE: AP portable at 0147 COMMENT: The inspiration is less optimal than on 12/28/2018. There is ill-defined opacity in both lower lobes. This appears somewhat worse than on the previous study but may be largely due to the degree of inspiration. IMPRESSION: Atelectasis versus pneumonia both lower lobes. Electronically signed by Braxton Licona 06/10/2019 7:09 AM
[2019-06-10] MEDS ORDERED: NS 1,000 ML IV ONE (07:17)
[2019-06-10 08:14] LABS: URINE SOURCE CLEAN CATCH
[2019-06-10 08:20] LABS: BILIRUBIN URINE NEGATIVE (NEGATIVE); BLOOD URINE NEGATIVE (NEGATIVE); COLOR STRAW; GLUCOSE URINE NEGATIVE (NEGATIVE); KETONE URINE NEGATIVE (NEGATIVE); LEUKOCYTES URINE NEGATIVE (NEGATIVE); NITRITE URINE NEGATIVE (NEGATIVE); PH URINE 7.5; PROTEIN URINE 30 mg/dL (NEGATIVE); SP GRAVITY URINE 1.009; TURBIDITY URINE CLEAR (CLEAR); UROBILINOGEN URINE NORMAL (NORMAL)
[2019-06-10 08:21] LABS: UR EPITHELIAL CELLS <10 /HPF (<10); URINE BACTERIA NEGATIVE /HPF; URINE RBC <10 /HPF (<10); URINE WBC <10 /HPF (<10)
[2019-06-10] MEDS ORDERED: NITROGLYCERIN SL PRN (13:03)
[2019-06-10] MEDS ORDERED: LASIX PO PRN (13:15)
[2019-06-10] MEDS ORDERED: SODIUM CHLORIDE 0.9% INJ SCH (13:15)
[2019-06-10] MEDS ORDERED: NEXIUM IV SCH (13:15)
[2019-06-10] MEDS: PROTONIX IV SCH (13:57)
[2019-06-10] MEDS: LEVAQUIN 500 MG/D5W 500 MG/100 ML IVPB IV SCH (13:57)
[2019-06-10] MEDS: SODIUM CHLORIDE 0.9% INJ SCH (13:57)
[2019-06-10] MEDS: LOVENOX SUBQ SCH (13:57)
--- NOTE | 2019-06-10 14:33 | HISTORY AND PHYSICAL ---
CHIEF COMPLAINT: Shortness of breath since 2 days ago. HISTORY OF PRESENT ILLNESS: He is a 68-year-old white gentleman, morbidly obese, who came to the ER with dyspnea on exertion after mowing the grass, not able to breathe, and minimal exertion. No chest pain. No PND. No orthopnea. No swelling of feet. Chest x-ray possible atelectasis, pneumonia and no cough, no fever. 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 Verdugo. Basically admitted to the hospital for new onset of shortness of breath. Basically rule out aortic stenosis, rule out ischemic heart disease and treating with bronchitis with antibiotics. As a result, a hospital admission was warranted and I did request a D-dimer which is negative. EKG showing multiple PVCs. Blood pressure is running high. PAST MEDICAL HISTORY: Morbid obesity, CAD, type 2 diabetes, hypertension, sleep apnea, hyperlipidemia, osteoarthritis, peripheral vascular disease, mild aortic stenosis, hemodynamic stenosis, right internal carotid stenosis moderate on the left side. PAST SURGICAL HISTORY: Multiple stents, EGD 2012, sinus surgery, back surgery. MEDICATIONS: 1. Aspirin 325 daily. 2. Mevacor 20 mg daily. 3. Lisinopril/hydrochlorothiazide 20/12.5 p.o. b.i.d. 4. Coreg 3.125 p.o. b.i.d. 5. Metformin 500 p.o. b.i.d. 6. Nitroglycerin as needed. 7. Tylenol as needed. 8. Cardizem 240 daily. 9. Doxazosin 1 mg p.o. b.i.d. 10. Lasix 20 mg daily. ALLERGIES: Not known. SOCIAL HISTORY: He is . Retired. No smoking. No alcohol. FAMILY HISTORY: Positive for CAD. REVIEW OF SYSTEMS: HEENT: No headache. No vision problem. No earache. No sore throat. Neck: No goiter. No lymphadenopathy. No bruit. Cardiopulmonary: Basically no chest pain, shortness of breath on exertion. No PND. No orthopnea. GI: No nausea, vomiting, abdominal pain. : No history of hesitancy, frequency, dysuria. Extremities: No swelling of feet. History of bilateral SFA stenosis and no claudication symptoms. No back pain. Neurologic: No focal symptoms or weakness. PHYSICAL EXAMINATION: Temperature is 98.4, 88% on pulse oximetry, 4 L nasal cannula. 5 feet 6 inches, 276 pounds. Blood pressure is running high. HEENT: Atraumatic, normocephalic. Pupils equal, react to light. TMs are normal. Nose and throat within normal limits. NECK: Supple. No lymphadenopathy. No goiter. CHEST: Bilateral air entry. HEART: Sounds are regular. 2/6 systolic murmur in aortic area distant. ABDOMEN: Belly is soft, obese, nontender. No signs of gangrene. NEUROLOGIC: No obvious neurological deficits. INVESTIGATIONS: White cell count 12.6, hematocrit 44.6, platelet 266,000. D-dimer 0.35. Sodium 141, potassium 3.5, chloride 96, BUN 16, creatinine 0.9, glucose 171, calcium 8.7, alkaline phosphatase 162. Cardiac enzymes are negative. ProBNP 625. Urinalysis is clear. Chest x-ray reported atelectasis or pneumonia in both lower lobes. ASSESSMENT AND PLAN: 1. 68-year-old white male admitted to the hospital with new onset of dyspnea on exertion. Negative D-dimer and rule out aortic stenosis, severe. Rule out ischemic heart disease. Need a stress test. We will repeat the echo and schedule for stress test on Wednesday. 2. Sleep apnea on CPAP machine. 3. Atelectasis. Incentive spirometry, IV antibiotics. 4. PID with bilateral carotid disease, right side is worsening along with bilateral SFA. On medical management by Dr. Collazo. On aspirin. 5. Hypertension, heart disease, on Coreg, diltiazem, Cardura, and lisinopril. 6. Type 2 diabetes on metformin along with a sliding scale insulin coverage. 7. DVT and GI prophylaxis with Lovenox and Nexium. 8. Reconcile home medications and physical therapy consult. Follow up on the pending labs. Living Will, reported DNR and we will follow up on the reports. cc: Faustino Nelson MD
[2019-06-10] MEDS: ZOSYN 3.375 GM in NS 50 ML IV SCH ×2 (17:22→22:09)
[2019-06-10] MEDS: MEVACOR PO SCH (17:22)
[2019-06-10] MEDS: CARDURA PO SCH (20:16)
[2019-06-10] MEDS: COREG PO SCH (20:16)
[2019-06-10] MEDS: GLUCOPHAGE PO SCH (20:16)
[2019-06-10] MEDS: PRINZIDE 20/12.5MG PO SCH (20:16)
--- NOTE | 2019-06-11 00:53 | EKG Report ---
Test Performed on : 06/10/2019 08:36:57 AM Test Reason : cp Blood Pressure : / mmHG Vent. Rate : 089 BPM Atrial Rate : 089 BPM P-R Int : 162 ms QRS Dur : 094 ms QT Int : 380 ms P-R-T Axes : 052 005 089 degrees QTc Int : 462 ms Sinus rhythm. with frequent premature ventricular complexes. ST & T wave abnormality, consider lateral ischemia Abnormal ECG When compared with ECG of 10-JUN-2019 01:00, (Unconfirmed) Nonspecific T wave abnormality, worse in Anterolateral leads Unconfirmed Result
[2019-06-11 04:41] LABS: ALLEN TEST YES; BE 8.4 mmoll (-3.0-3.0); BLOOD TYPE ARTERIAL; HCO3-(ACT) 31.4 mmoll (20.0-26.0); METHB 1.4 % (0.0-1.5); MODALITY CANNULA; O2(CT) 19.6 mL/dL (15.0-23.0); O2HB 95.6 % (95.0-99.0); PO2(98.6) 107 mmHg (60-100); SAMPLE BLOOD; SAO2 98.8 % (95.0-100.0); THB 14.5 g/dL (11.5-17.4)
[2019-06-11 04:42] LABS: PCO2(98.6) 57 mmHg (35-45)
[2019-06-11] MEDS: ZOSYN 3.375 GM in NS 50 ML IV SCH ×4 (04:45→22:32)
[2019-06-11 05:45] LABS: BASO# 0.04 X1000 (0.0-0.2); BASO% 0.3 % (0.0-0.8); EOS# 0.07 X1000 (0.0-0.7); EOS% 0.6 % (0.0-10.0); HEMATOCRIT 42.9 % (42.0-52.0); HEMOGLOBIN 13.5 g/dL (14.0-18.0); IMM GRAN# 0.02 X1000 (0.0-0.04); IMM GRAN% 0.2 % (0.0-0.5); LYMPH# 1.42 X1000 (1.2-3.4); LYMPH% 11.2 % (20.5-51.1); MCH 28.5 PG (27-31); MCHC 31.5 g/dL (33-37); MCV 90.7 FL (81-99); MONO# 1.25 X1000 (0.11-0.59); MONO% 9.9 % (1.7-9.3); MPV 10.6 FL (7.4-10.4); NEUT# 9.83 X1000 (1.4-6.5); NEUT% 77.8 % (42.2-75.2); PLT 215 X1000 (130-400); RBC 4.73 XMIL (4.7-6.1); RDW 13.4 % (11.5-14.5); WBC 12.63 X1000 (4.8-10.8)
[2019-06-11 06:31] LABS: AGAP 11; BUN 14 mg/dL (8-22); CHLORIDE 99 mmol/L (98-107); COSMO 286; CREATININE 1.1 mg/dL (0.7-1.2); ESTIMATED GFR > 60; GLUCOSE 137 mg/dL (70-104); POTASSIUM 4.2 mmol/L (3.5-5.1); SODIUM 142 mmol/L (136-145); TCO2 32 mmol/L (25-35)
[2019-06-11] MEDS: CARDURA PO SCH ×2 (08:49→20:27)
[2019-06-11] MEDS: GLUCOPHAGE PO SCH ×2 (08:50→20:27)
[2019-06-11] MEDS: COREG PO SCH ×2 (08:50→20:26)
[2019-06-11] MEDS: ASPIRIN PO SCH (08:50)
[2019-06-11] MEDS: CARDIZEM CD PO SCH (08:50)
[2019-06-11] MEDS: PRINZIDE 20/12.5MG PO SCH ×2 (08:50→20:26)
--- NOTE | 2019-06-11 11:33 | EKG Report ---
Test Performed on : 06/11/2019 06:17:47 AM Test Reason : cp Blood Pressure : / mmHG Vent. Rate : 088 BPM Atrial Rate : 088 BPM P-R Int : 162 ms QRS Dur : 100 ms QT Int : 394 ms P-R-T Axes : 059 012 058 degrees QTc Int : 476 ms Sinus rhythm. with frequent premature ventricular complexes. Cannot rule out Inferior infarct , age undetermined Abnormal ECG When compared with ECG of 10-JUN-2019 08:36, (Unconfirmed) Nonspecific T wave abnormality no longer evident in Anterolateral leads Confirmed by Marni JARA, Yifan Bernal ([id number]) on 06/13/2019 1:09:53 PM
[2019-06-11] MEDS: SODIUM CHLORIDE 0.9% INJ SCH (13:25)
[2019-06-11] MEDS: LEVAQUIN 500 MG/D5W 500 MG/100 ML IVPB IV SCH (13:25)
[2019-06-11] MEDS: PROTONIX IV SCH (13:25)
[2019-06-11] MEDS: LOVENOX SUBQ SCH (13:25)
--- NOTE | 2019-06-11 13:59 | PROGRESS NOTE ---
DATE: 06/11/2019 SUBJECTIVE: The patient complains of shortness of breath on exertion. No chest pain. No focal symptoms. PHYSICAL EXAMINATION: Temperature is 97.7 degrees, pulse 83, blood pressure 154/77. Morbidly obese. HEENT Examination: Within normal limits. Neck: Supple. Chest: There is bilateral air entry. Heart sounds are regular. Belly is soft, nontender. Good bowel sounds. No neurological deficits. INVESTIGATIONS: White cell count 12.6, hematocrit 42.9, platelets 215,000. ABG: The pH is 7.47, pCO2 of 57, PO2 of 107. SMA 7 is normal. Cardiac enzymes were negative. ProBNP 1244. EKG, sinus rhythm, PVCs. ASSESSMENT AND PLAN: 1. Shortness of breath on exertion. Rule out aortic stenosis, rule out ischemic heart disease. Plan is we will get an echocardiography and also a stress test. 2. Coronary artery disease with multiple stents. Continue on aspirin and Coreg, Cardizem. 3. Deep venous thrombosis prophylaxis with Lovenox. 4. History of hypostatic pneumonia. Incentive spirometry. Continue on Levaquin and Zosyn. 5. Decrease oxygen 2 L. 6. Carotid stenosis bilateral, right worse than the left side. Under the care of Dr. Collazo. 7. We will follow up the echocardiogram and stress test. LEVEL OF DOCUMENTATION: 25 minutes. cc: Faustino Nelson MD
--- NOTE | 2019-06-11 14:03 | ECHO REPORT ---
ORDER DATE: 06/10/2019 INTERPRETING PHYSICIAN: Dr. Jose Husain. ECHOCARDIOGRAPHIC MEASUREMENTS: 1. Interventricular septum 0.6. 2. Left ventricular posterior wall 0.8. 3. Diastolic diameter 5.9. 4. Left atrium 4.0. 5. Aorta 2.5 cm. SUMMARY OF THE 2-DIMENSIONAL IMAGIN. Technically suboptimal study. Poor acoustic window. 2. Pulmonic valve not well visualized. 3. Aortic valve leaflets are calcified, not well visualized. 4. Mitral valve was normal. 5. Tricuspid valve was normal. Peak velocity across the tricuspid valve less than 2 m/sec. There is mild tricuspid regurgitation. 6. Mild mitral regurgitation. 7. Peak velocity across the aortic valve was 3.2 m/sec with a mean gradient of 26 mmHg, peak gradient of 42 mmHg. Aortic valve area by VTI was 0.6 cm. However, as this is a technically suboptimal study, Doppler velocities across the right ventricular outflow tract are probably not accurately obtained. Would recommend a transesophageal echocardiogram to evaluate for aortic valve area. The question of low-flow low-gradient aortic stenosis to be evaluated. However, technically suboptimal transesophageal echocardiogram, and other modalities of imaging would be helpful when clinically indicated. 8. There is no pericardial effusion. 9. Normal left ventricular cavity size. Estimated ejection fraction of 60%. Optison was used to assess left ventricular systolic function. 10. There is no pericardial effusion or obvious intracardiac mass or thrombus. cc: MD Faustino Luna MD
[2019-06-11] MEDS: MEVACOR PO SCH (17:29)
[2019-06-12] MEDS: ZOSYN 3.375 GM in NS 50 ML IV SCH ×4 (04:18→23:03)
[2019-06-12] MEDS ORDERED: LEXISCAN ONE (13:27)
[2019-06-12] MEDS: LEVAQUIN 500 MG/D5W 500 MG/100 ML IVPB IV SCH (15:10)
[2019-06-12] MEDS: LOVENOX SUBQ SCH (15:11)
[2019-06-12] MEDS: ASPIRIN PO SCH (15:11)
[2019-06-12] MEDS: PROTONIX IV SCH (15:11)
[2019-06-12] MEDS: SODIUM CHLORIDE 0.9% INJ SCH (15:11)
[2019-06-12] MEDS: CARDIZEM CD PO SCH (15:11)
--- NOTE | 2019-06-12 15:17 | CARDIOLOGY CONSULTATION ---
DATE: 06/12/2019 CHIEF COMPLAINT: Shortness of breath. HISTORY OF PRESENT ILLNESS: Mr. Robles is a 68-year-old white male with a history of moderate aortic stenosis by echo in October 2018. He presented for evaluation of shortness of breath that began Wednesday evening around 11 p.m. when he was at rest. He reported that he pushed mowed his lawn that morning without any difficulties. He denies any complaints of chest pain. Denies any orthopnea. No PND. He has had no syncope. PAST MEDICAL HISTORY: Significant for 1. Moderate aortic stenosis. Last echocardiogram was performed in October 2018 demonstrating a valve area 1.6. Mean gradient of 30, EF 55%. His most recent echo on some in May of this year demonstrated a mean gradient of 26 of valve area was 0.6. This was a difficult study. EF 60%. 2. History of coronary artery disease with previous PCI. 3. Hypertension. 4. Morbid obesity. 5. Type 2 diabetes. 6. Reflux disease. 7. Peripheral vascular disease with history of bilateral carotid artery disease. SOCIAL HISTORY: He is . His is present in the room. He has no tobacco use. No current alcohol. FAMILY HISTORY: Significant for coronary disease. REVIEW OF SYSTEMS: A 10 system review of systems is negative except for those as mentioned in HPI. PHYSICAL EXAMINATION: Vital Signs: Today, she is afebrile. His heart rate is 82. His blood pressure is 144/55. General: He is in no acute distress. HEENT: Oropharynx is moist. Poor dentition. His eye examination is pink conjunctivae, white sclerae. Neck: Shows no obvious thyromegaly or thyroid tenderness. Cardiovascular: He sounds to be in a regular rate and rhythm. He has a 2 to 3/6 systolic crescendo-decrescendo murmur heard at the right upper sternal border. He has no lower extremity edema. He has warm and well-perfused extremities. He does sound to have bilateral carotid bruits. Chest: His chest exam has some coarse breath sounds diffusely. No obvious wheezing. No increased work of breathing. Abdomen: Soft, nontender, nondistended. He has no obvious organomegaly. Skin: Warm and dry throughout without any rashes. Neurological: Moving all extremities well. He has no lateralizing deficits. PERTINENT DATA: His EKG on the at 8:36 shows sinus rhythm. Multiple PVCs were identified. No signs of scar. No signs of ischemic changes. His subsequent EKG on the at 6:17 shows sinus rhythm, multiple PVCs. He had a chest x-ray on the demonstrating atelectasis versus pneumonia in bilateral lower lobes. His carotid Doppler in April demonstrating stable right carotid artery stenosis approaching hemodynamic significance with progression of disease in the left suggesting bilateral severe internal carotid artery disease. His lab data shows a white count of 12.6. His hematocrit is 42. His platelet count is 215,000. His sodium is 142, potassium 4.2, BUN 14, creatinine is 1.1. Cardiac enzymes are negative. His proBNP on presentation was 625, subsequent was 1244. ASSESSMENT: Mr. Robles is a 68-year-old gentleman who presented for shortness of breath. PLAN: Myocardial perfusion imaging is currently pending. We will proceed with transesophageal echo to further evaluate his aortic valve tomorrow. Further recommendations to follow the results of the testing. If his cardiac testing is unremarkable, then I would likely continue on a course of antibiotics as he is already on. He currently is taking Zosyn and Levaquin. His blood cultures have been negative. Risks, benefits, and alternatives to the testing have been discussed with the patient. He agrees to proceed. cc: MD Faustino Jeong MD
[2019-06-12] MEDS: COREG PO SCH ×2 (15:42→23:55)
[2019-06-12] MEDS: LASIX PO SCH (15:42)
[2019-06-12] MEDS: CARDURA PO SCH (15:42)
[2019-06-12] MEDS: GLUCOPHAGE PO SCH ×2 (15:42→23:55)
[2019-06-12] MEDS: PRINZIDE 20/12.5MG PO SCH ×2 (15:43→23:55)
[2019-06-12] MEDS: TYLENOL PO PRN (15:54)
--- NOTE | 2019-06-12 16:48 | Diag Imaging Result Document ---
PROCEDURE NAME: MYOCARDIAL PERF SCAN, STR/REST - 06/12/2019 FINDINGS: Lexiscan was infused per standard protocol. Baseline electrocardiogram revealed normal sinus rhythm, poor R-wave progression. Frequent premature ventricular beats were noted. During Lexiscan infusion, premature ventricular beats were noted throughout the infusion. There was couplets of 2 beats noted. There was no ventricular tachycardia. Cardiolite was injected, and 15.9 mCi of Cardiolite was injected for the resting phase and 45.9 mCi of Cardiolite was injected for the stress phase. Gated SPECT images were obtained in standard views. There was significant chest wall and diaphragmatic attenuation. Normal left ventricular cavity size. There is moderate grade, moderate size fixed defect in the inferior inferoapical and low-grade defect affixed in the inferolateral wall. This is likely to represent a scar. Cannot rule out attenuation. Left ventricular ejection fraction by gated SPECT was 51%. There is mild inferior wall hypokinesis. Left ventricle was dilated. CONCLUSIONS: 1. No chest pain. 2. Negative Lexiscan stress electrocardiogram. 3. Frequent premature ventricular beats were noted. PVCs in couplets were noted. 4. Myocardial perfusion images revealed no evidence of ischemia. 5. Left ventricle is dilated. 6. There is a moderate size, moderate grade fixed defect in the inferoapical wall. 7. In addition, there is fixed defect in the inferolateral wall. This is suggestive of scar. Left ventricular ejection fraction by gated SPECT was 51%. Inferior wall hypokinesis was noted. There was also associated significant attenuation. cc: MD Faustino Luna MD
[2019-06-12] MEDS: MEVACOR PO SCH (17:20)
--- NOTE | 2019-06-12 19:11 | PROGRESS NOTE ---
DATE: 06/12/2019 SUBJECTIVE: The patient is here for dyspnea on exertion. The patient is getting frequent PVCs. The patient is going for a stress test. REVIEW OF SYSTEMS: Productive cough. OBJECTIVE: Vital Signs: On exam, no fever. Pulse is 82. Vitals are stable. 2 L nasal cannula 98%. HEENT Exam: Within normal limits. Neck: Supple. Chest: Bilateral air entry. Heart: Distant heart sounds. Abdomen: Belly is soft, obese, nontender. ASSESSMENT AND PLAN: 1. Exertional shortness of breath. Echocardiography: Moderate aortic stenosis. Consult with Dr. Husain for transesophageal echocardiogram. 2. Existing heart disease, ruled out for myocardial infarction. Follow up on stress test. 3. Bronchitis possible atelectasis, hypostatic pneumonia, productive cough. Continue on Levaquin and Zosyn, incentive spirometry. Appreciated Cardiology consult. We will follow up. LEVEL OF DOCUMENTATION: 25 minutes. cc: Faustino Nelson MD
[2019-06-13] MEDS: CARDURA PO SCH ×3 (00:02→20:02)
[2019-06-13] MEDS: ZOSYN 3.375 GM in NS 50 ML IV SCH ×4 (05:04→23:29)
[2019-06-13 06:34] LABS: HEMATOCRIT 41.3 % (42.0-52.0); MCH 29.4 PG (27-31); MCHC 31.5 g/dL (33-37); MCV 93.4 FL (81-99); MPV 10.7 FL (7.4-10.4); RBC 4.42 XMIL (4.7-6.1); RDW 13.6 % (11.5-14.5); WBC 10.68 X1000 (4.8-10.8)
[2019-06-13 07:03] LABS: AGAP 12; BUN 14 mg/dL (8-22); CALCIUM 8.6 mg/dL (8.8-10.2); CHLORIDE 95 mmol/L (98-107); COSMO 279; ESTIMATED GFR > 60; GLUCOSE 114 mg/dL (70-104); POTASSIUM 3.4 mmol/L (3.5-5.1); SODIUM 139 mmol/L (136-145); TCO2 32 mmol/L (25-35)
[2019-06-13] MEDS: CARDIZEM CD PO SCH (08:45)
[2019-06-13] MEDS: COREG PO SCH ×2 (08:45→20:02)
[2019-06-13] MEDS: PRINZIDE 20/12.5MG PO SCH ×2 (08:45→20:02)
[2019-06-13] MEDS ORDERED: DIPRIVAN 1% ONE (09:29)
[2019-06-13] MEDS ORDERED: VERSED ONE (09:30)
[2019-06-13] MEDS ORDERED: SODIUM CHLORIDE 0.9% 10 ML ONE (09:30)
[2019-06-13] MEDS ORDERED: XYLOCAINE 2% VISCOUS ONE (09:30)
[2019-06-13] MEDS ORDERED: KETAMINE ONE (09:31)
[2019-06-13 09:36] LABS: INR 1.15; PROTIME 14.9 Seconds (11.0-16.0)
[2019-06-13] MEDS ORDERED: XYLOCAINE-MPF 2% ONE (09:46)
[2019-06-13] MEDS ORDERED: NS 1,000 ML ONE (09:47)
[2019-06-13] MEDS ORDERED: ANESTHESIA PB SET 88 IN 5742 ONE (09:47)
[2019-06-13] MEDS ORDERED: CLAVE TWINSITE 32 IN 11959 ONE (09:47)
--- NOTE | 2019-06-13 10:48 | Transesophageal Echocardiogram ---
DATE: 06/13/2019 PROCEDURE: Transesophageal echocardiogram to evaluate the aortic valve. DESCRIPTION OF PROCEDURE: The patient was brought to the cardiac catheterization laboratory. The patient's oropharynx was anesthetized using Cetacaine spray. A transesophageal probe was easily passed into the esophagus. Anesthesia was present. Propofol was given to sedate the patient. Please see detailed anesthesia records. There were no complications. FINDINGS: 1. Normal left ventricular cavity size. Estimated ejection fraction of 60%. 2. Mitral valve was normal. 3. Tricuspid valve was normal. 4. Pulmonic valve was normal. 5. Aortic valve leaflets were calcified. By planimetry, aortic valve area was 1.5 square centimeters. Left ventricular outflow tract diameter was 2.2 cm. Ascending aorta was 3.1 cm. 6. Doppler studies revealed mild mitral regurgitation, mild tricuspid regurgitation. There is no aortic regurgitation. 7. Left atrium was normal. Left atrial appendage was normal. 8. Ascending aorta was normal. 9. Descending aorta had layered plaque. CONCLUSIONS: 1. Calcified aortic valve. By planimetry, aortic valve area of 1.5 square centimeters. 2. There is no pericardial effusion or obvious intracardiac mass or thrombus seen. cc: MD Yaneth Luna PA Jagan Reddy, MD
[2019-06-13] MEDS: LASIX PO SCH (13:05)
[2019-06-13] MEDS: GLUCOPHAGE PO SCH ×2 (13:05→20:02)
[2019-06-13] MEDS: PROTONIX IV SCH (13:05)
[2019-06-13] MEDS: SODIUM CHLORIDE 0.9% INJ SCH (13:05)
[2019-06-13] MEDS: LEVAQUIN 500 MG/D5W 500 MG/100 ML IVPB IV SCH (14:51)
[2019-06-13] MEDS: LOVENOX SUBQ SCH (14:51)
--- NOTE | 2019-06-13 17:14 | CARDIOLOGY PROGRESS NOTE ---
DATE: 06/13/2019 SUBJECTIVE: Mr. Robles reports no troubles today. His breathing is doing well. He has no chest pain. OBJECTIVE: Vital signs: Afebrile. Heart rate is 79, blood pressure 136/56. Generally: He is in no acute distress. Cardiovascular: He sounds to be in a regular rate and rhythm. I do not hear any obvious murmurs. He has no S3. He has no lower extremity edema. Chest: Clear to auscultation bilaterally. He has no increased work of breathing. PERTINENT DATA: His REBECCA was performed today and demonstrated a valve area of 1.5 cm2. The ejection fraction appeared to be normal. The LV outflow tract diameter was 2.2 cm. His lab data shows a white count of 10.7, his hematocrit was 41, platelet count 225,000. His nuclear scan from yesterday was reviewed, demonstrated some fixed defects but no ischemic changes. ASSESSMENT: Mr. Robles is a 68-year-old gentleman presenting with shortness of breath. PLAN: At this point, he has a normal ejection fraction. His aortic valve does not appear to be severely inhibited in motion. We will increase his Coreg preferentially due to his history of coronary disease and previous [place] and we will down titrate his diltiazem. I will double his carvedilol to 6.25 and drop his diltiazem to 120 daily. I would continue to preferentially increase those medications and decreased the diltiazem as heart rate and blood pressure tolerate. From my standpoint, he can be discharged when stable from a primary team standpoint. cc: MD Faustino Jeong MD
[2019-06-13] MEDS: LIPITOR PO SCH (20:02)
--- NOTE | 2019-06-13 23:57 | PROGRESS NOTE ---
DATE: 06/13/2019 SUBJECTIVE: The patient is waiting for REBECCA and also had completed his cardiac workup. Decreased productive cough. PHYSICAL EXAM: Temperature is 97.8 degrees, pulse 80, blood pressure is 153/56.HEENT: Within normal limits. Neck: Supple. No lymphadenopathy. Chest: Bilateral air entry. No signs of pneumonitis. Heart: Sounds are regular, very distant systolic murmur in the aortic area noted. LABS: CBC: White cell count 10.6, hematocrit 41.3, platelets 225,000. Sodium 129, potassium 3.4, chloride 95, BUN 14, creatinine 1.0, glucose 114. Blood cultures are negative. ASSESSMENT AND PLAN: 1. Shortness of breath on exertion, cardiac stress test findings were discussed with the patient, reported ejection fraction 51% with premature ventricular contractions, no reversible ischemia other than fixed defects in inferior apical wall and hypokinesis of the inferior wall noted. 2. Right carotid stenosis, hemodynamic stenosis. Follow up with Dr. Collazo. 3. Evaluation of aortic stenotic murmur for quantification by REBECCA scheduled for today. 4. Bilateral hypostasis, pneumonitis, atelectasis. Continue IV antibiotics. Repeat the chest x- ray in the morning. Will follow up and based on that further recommendations will be followed. LEVEL OF DOCUMENTATION: 25 minutes. cc: Faustino Nelson MD
[2019-06-14] MEDS: ZOSYN 3.375 GM in NS 50 ML IV SCH ×4 (05:09→22:46)
[2019-06-14] MEDS ORDERED: CARDIZEM CD ONE (07:53)
--- NOTE | 2019-06-14 08:20 | Diag Imaging Result Doc PS360 ---
CHEST-2 VIEWS - 06/14/2019 INDICATION: shortness of breath COMPARISON: 06/10/2019 FINDINGS: There is some hazy linear atelectasis or infiltrate in the lung bases. The lungs are otherwise clear. Lungs are hyper expanded with flattened diaphragms compatible with COPD. Heart size is normal. IMPRESSION: COPD. Bibasilar linear atelectasis or infiltrate. Electronically signed by Rojas Harrison 06/14/2019 8:18 AM
[2019-06-14] MEDS: CARDURA PO SCH ×2 (08:36→21:03)
[2019-06-14] MEDS: ASPIRIN EC PO SCH (08:37)
[2019-06-14] MEDS: PRINZIDE 20/12.5MG PO SCH ×2 (08:37→21:03)
[2019-06-14] MEDS: GLUCOPHAGE PO SCH ×2 (08:37→21:03)
[2019-06-14] MEDS: COREG PO SCH (08:37)
[2019-06-14] MEDS: LASIX PO SCH (08:37)
[2019-06-14] MEDS ORDERED: CARDIZEM CD PO SCH (09:00)
[2019-06-14 10:15] LABS: ALLEN TEST YES; BE 15.7 mmoll (-3.0-3.0); BLOOD TYPE ARTERIAL; O2(CT) 16.9 mL/dL (15.0-23.0); O2HB 92.4 % (95.0-99.0); PCO2(98.6) 50 mmHg (35-45); PO2(98.6) 57 mmHg (60-100); SAMPLE BLOOD; SAO2 95.5 % (95.0-100.0); pH(98.6) 7.52 (7.35-7.45)
[2019-06-14] MEDS: SODIUM CHLORIDE 0.9% INJ SCH (13:14)
[2019-06-14] MEDS: PROTONIX IV SCH (13:14)
[2019-06-14] MEDS: LEVAQUIN 500 MG/D5W 500 MG/100 ML IVPB IV SCH (13:14)
[2019-06-14] MEDS: LOVENOX SUBQ SCH ×2 (13:14→16:24)
--- NOTE | 2019-06-14 13:25 | CARDIOLOGY PROGRESS NOTE ---
DATE: 06/14/2019 SUBJECTIVE: Mr. Robles reports he is doing well. He has no shortness of breath. He has been ambulating in the hallways. OBJECTIVE: Physically, he is afebrile, heart rate 83, blood pressure 152/82.General: He is in no acute distress. Cardiovascular: He sounds to be in a regular rate and rhythm. He has no obvious murmurs. He has no S3. He has no lower extremity edema. Chest: Exam sounds relatively clear. He has no increased work of breathing. GI: His abdomen is soft and nontender. PERTINENT DATA: His ABG was reviewed today with slight elevation in the pCO2 of 50, PO2 was 57 on room air. His chest x-ray suggested some bibasilar linear atelectasis or possible infiltrate. ASSESSMENT: Mr. Robles is a 68-year-old gentleman who presented with shortness of breath. He has evidence for aortic stenosis. His echocardiogram was reviewed. His nuclear scan was reviewed. His shortness of breath does not seem cardiac in etiology. We will continue titration so his cardiac medications with the escalation of the Coreg to 12.5 mg b.i.d. and discontinuation of diltiazem. From my standpoint, he can be discharged whenever acceptable from a primary care standpoint. I will make a followup appointment with him to see me in the office within the next month. cc: MD Faustino Jeong MD
[2019-06-14] MEDS: LIPITOR PO SCH (21:03)
--- NOTE | 2019-06-15 03:13 | PROGRESS NOTE ---
DATE: 06/14/2019 SUBJECTIVE: The patient is a little better, anxious to go home. Cardiac workup was negative. Still productive cough. Waiting for a chest x-ray. Also, evaluation for home oxygen. PHYSICAL EXAMINATION: Vital signs: Temperature is 97.9 degrees, pulse is 80, blood pressure is stable. General: Morbidly obese. HEENT: Within normal limits. Neck: Supple. No lymphadenopathy. Chest: Bilateral air entry. Heart: Sounds are regular. INVESTIGATIONS: ABG with PO2 of 57, pCO2 of 50. Chest x-ray still bibasilar atelectasis. ASSESSMENT AND PLAN: 1. Shortness of breath, slowly improving. Evaluation of home oxygen, he might qualify for oxygen. 2. Pickwickian syndrome. 3. Hemodynamic impending stenosis in the right IC. I spoke to Dr. Collazo. 4. Moderate aortic stenosis. 5. Coronary artery disease. Cardiac workup was negative. PLAN: Continue on IV antibiotics. Evaluate oxygen, and based on that further recommendations will be followed. Continue present treatment. LEVEL OF DOCUMENTATION: 25 minutes. cc: Faustino Nelson MD
[2019-06-15] MEDS: ZOSYN 3.375 GM in NS 50 ML IV SCH (05:03)
[2019-06-15] MEDS: PROTONIX PO SCH ×2 (05:03→06:17)
[2019-06-15] MEDS ORDERED: PREVNAR 13 IM ONE (07:15)
[2019-06-15 08:09] VITALS: BP 114/62
[2019-06-15] MEDS: GLUCOPHAGE PO SCH (08:22)
[2019-06-15] MEDS: ASPIRIN EC PO SCH (08:22)
[2019-06-15] MEDS: LASIX PO SCH (08:22)
[2019-06-15] MEDS: CARDURA PO SCH (08:22)
[2019-06-15] MEDS: PRINZIDE 20/12.5MG PO SCH (08:22)
[2019-06-15] MEDS ORDERED: COREG PO SCH (09:00)
[2019-06-15] MEDS: TYLENOL PO PRN (09:14)
--- NOTE | 2019-06-18 20:39 | DISCHARGE SUMMARY ---
ADMISSION DATE: 06/10/2019 DISCHARGE DATE: 06/15/2019 DISCHARGING DIAGNOSIS: Shortness of breath due to bilateral hypostatic pneumonia. SECONDARY DIAGNOSES: 1. Pickwickian syndrome with retention of carbon dioxide with hypoxemia qualified for home oxygen. 2. Moderate aortic stenosis. Estimated aortic valve area 1.5 square cm. Peak velocity 3.2 m/sec. 3. Hemodynamic stenosis right internal carotid artery 80% asymptomatic. 4. Type 2 diabetes. 5. Hypertension. 6. BPH. 7. Hyperlipidemia. 8. Osteoarthritis. 9. Coronary artery disease with multiple stents. CONSULTANTS: Dr. Verdugo. PROCEDURES: 1. Myocardial perfusion scan. No chest pain. Negative Lexiscan stress electrocardiogram. Frequent PVCs noted. Moderate fixed defect in inferior apical wall with hypokinesis of inferior wall with ejection fraction 51%. 2. Carotid Doppler studies on 04/27/2019. Hemodynamic stenosis right internal carotid artery compared to the left side. 3. Transesophageal echocardiography. Aortic valve area 1.5 square cm. Ejection fraction is about 55% to 60%. BRIEF HISTORY: Please see the H and P that was done on 06/10/2019. In brief, he is a 68-year-old white gentleman who was admitted to the hospital with dyspnea on exertion for the last 2 days while mowing the grass. He has known history of PAD under the care of Dr. Collazo. He has known history of CAD and aortic stenosis under the care of Dr. Verdugo. Chest x-ray showed hypostatic atelectasis with pneumonia with a lot of productive cough. HOSPITAL COURSE: 1. The patient was given oxygen, IV antibiotics, broad-spectrum with combination of Zosyn, Levaquin, and cough expectorants. Follow-up x-ray continues to remain some atelectasis. The patient was encouraged to lose weight and use incentive spirometry. 2. The patient has bilateral carotid stenosis, right worse than the left side based on the velocities approaching 240 cm per second. Currently asymptomatic under medical management by Dr. Collazo. 3. In light of CAD and aortic stenosis, cardiology consultation was obtained. He was ruled out for MS. However, cardiac telemetry showed multiple PVCs. Stress test was negative. A 2D echo showed some [id number] aortic stenosis for which REBECCA was obtained by Dr. Husain. At this time, value is [id number] aortic stenosis with 1.[address] Verdugo was relegated medical management. 4. Evaluation of home oxygen. He did qualify for home oxygen, and [facility] was arranged with oxygen 2 L. At the time of discharge, patient was back to the baseline. Pneumococcal 13 was given 06/15/2019. MEDICATIONS: Medications as follows: Mucinex DM 1 tablet p.o. b.i.d., Levaquin 500 daily, Coreg 12.5 p.o. b.i.d. Lasix 20 mg daily. Doxazosin [address] Verdugo discontinued Cardizem. Nitroglycerin as needed. Metformin 500 p.o. b.i.d. Lisinopril/hydrochlorothiazide 20/12.5 p.o. b.i.d. Mevacor 20 daily. Aspirin 325 daily. FOLLOW-UP: Follow up in my office in 10 days for chest x-ray and also follow up with Dr. Collazo for the right internal carotid artery stenosis. cc: MD Dr. Kartik Villatoro Dr. [facility]
== END 2019-06-15 09:45 | disposition home or self-care (01) | DRG 189 ==
LOC: ED 00:49 → 3N 08:21 → 2N 10:29
PROVIDERS: ADMIT Internal Medicine; ATTEND Internal Medicine

== ENCOUNTER 2019-06-20 12:11 | Inpatient (IN) ==
[2019-06-20 13:09] LABS: BASO# 0.05 X1000 (0.0-0.2); BASO% 0.5 % (0.0-0.8); EOS# 0.17 X1000 (0.0-0.7); EOS% 1.6 % (0.0-10.0); HEMATOCRIT 43.7 % (42.0-52.0); HEMOGLOBIN 13.7 g/dL (14.0-18.0); IMM GRAN# 0.02 X1000 (0.0-0.04); IMM GRAN% 0.2 % (0.0-0.5); LYMPH# 1.91 X1000 (1.2-3.4); LYMPH% 18.5 % (20.5-51.1); MCH 28.5 PG (27-31); MCHC 31.4 g/dL (33-37); MCV 90.9 FL (81-99); MONO# 1.19 X1000 (0.11-0.59); MONO% 11.5 % (1.7-9.3); MPV 10.8 FL (7.4-10.4); NEUT% 67.7 % (42.2-75.2); PLT 236 X1000 (130-400); RBC 4.81 XMIL (4.7-6.1); WBC 10.34 X1000 (4.8-10.8)
--- NOTE | 2019-06-20 13:20 | Diag Imaging Result Doc PS360 ---
CHEST-1 VIEW - 06/20/2019 INDICATION: SOB COMPARISON: 06/14/2019 FINDINGS: There has been improvement in the faint linear atelectasis at the right lung base. There is some stable trace linear atelectasis at the left lung base. Stable small calcific granuloma in the right lung base. No new infiltrates. Heart size and pulmonary vascularity appears normal. IMPRESSION: Improvement from prior. Electronically signed by Rojas Harrison 06/20/2019 1:18 PM
[2019-06-20 13:31] LABS: ESTIMATED GFR > 60
[2019-06-20 13:42] LABS: AGAP 15; ALB/GLOB RATIO 1.5; ALBUMIN 4.1 g/dL (3.5-5.0); ALKALINE PHOSPHATASE 128 U/L (32-122); BUN 22 mg/dL (8-22); CALCIUM 9.6 mg/dL (8.8-10.2); CHLORIDE 88 mmol/L (98-107); CK PROFILE 45 U/L (24-204); COSMO 287; CREATININE 1.1 mg/dL (0.7-1.2); GLUCOSE 148 mg/dL (70-104); GOT 22 U/L (10-34); GPT 34 U/L (10-44); POTASSIUM 3.2 mmol/L (3.5-5.1); SODIUM 141 mmol/L (136-145); TCO2 38 mmol/L (25-35); TOTAL BILIRUBIN 0.32 mg/dL (0.20-1.00); TOTAL PROTEIN 6.8 g/dL (6.3-8.3)
--- NOTE | 2019-06-20 17:09 | PROVIDER DOCUMENTATION ---
This chart was entered by Sarah Stanton Scribe, acting as scribe for Alexi Ayon MD. HPI-Chest Pain - General Chief Complaint: Chest Pain Stated Complaint: SOB HEART PT Time Seen by Provider: 06/20/19 13:30 Source: patient, family () Allergies/Adverse Reactions: Patient Allergies Allergy/AdvReac Type Severity Reaction Status Date / Time No Known Allergies Allergy Verified 06/20/19 13:25 Home Medications: Home Medication List Medication Instructions Recorded Confirmed Last Taken Type Carvedilol [Coreg] 12.5 mg PO DAILY 06/20/19 06/20/19 Unknown History Diltiazem HCl [Cardizem LA] 240 mg PO DAILY 06/20/19 06/20/19 Unknown History Doxazosin Mesylate 2 mg PO DAILY 06/20/19 06/20/19 Unknown History Guaifenesin/Dextromethorphan 1 dose PO DIRECTED 06/20/19 06/20/19 Unknown History [Mucinex Dm ER 1,200-60 mg Tab] Ketoconazole 1 dose ORDERED DIRECTED 06/20/19 06/20/19 Unknown History Levofloxacin [Levaquin] 500 mg PO DAILY 06/20/19 06/20/19 Unknown History Lisinopril/Hydrochlorothiazide 1 dose PO DIRECTED 06/20/19 06/20/19 Unknown History [Lisinopril-Hctz 20-12.5 mg Tab] Lovastatin 20 mg PO DAILY 06/20/19 06/20/19 Unknown History Metformin HCl 500 mg PO DIRECTED 06/20/19 06/20/19 Unknown History - History of Present Illness-CP Nature of Presenting Problem: 68yom presents to ED cc chest pain under left breast, intermittent low o2 & heart rate up and down, SOB, cough and nausea since about noon. Pt reports he was seen in ED 06/10/19, admitted inpatient for 1 week and d/c with dx of pneumonia. Pt also reports he had a stress test 1 week ago that was unremarkable. Pt is requesting pt to be admitted and have Dr. Mario Verdugo /stitchdown thread laster do a heart cath. Pt takes 325asa qday and lasix. Pt denies f/v/d. Pt has hx of CAD and HTN. Location: reports: other (under left breast) Chest Pain Radiation: reports: no radiation Quality of Pain: reports: sharp Severity in ED: mild Onset/Duration: 1-3 hours ago Timing: still present, intermittent Context/Activities at Onset: reports: light activity Modifying Factors: improves with: nothing Associated Symptoms: reports: fatigue, nausea, shortness of breath. denies: abdominal pain, fever/chills, vomiting Nitro Today/Relief: no nitro taken today Aspirin Treatment Today: 325 mg x 1, provided at home Prior Chest Pain/Cardiac Workup: reports: stress test (last week), other (PR with stents placed in 2003) Similar Symptoms Previously?: Yes Recently Seen Here or By Another Healthcare Provider: Yes (seen 06/10/19 in ED) Review of Systems - Adult - REVIEW OF SYSTEMS - ADULT Constitutional: reports: see HPI, fatique. denies: chills, fever Eyes: reports: no symptoms reported Ears, Nose, Mouth & Throat: reports: no symptoms reported Cardiovascular: reports: see HPI, chest pain, irregular heart rate. denies: palpitations, syncope Respiratory: reports: see HPI, cough, shortness of breath. denies: wheezing Gastrointestinal: reports: see HPI, nausea. denies: abdominal pain, diarrhea, vomiting Genitourinary: reports: no symptoms reported Musculoskeletal: reports: no symptoms reported Integumentary: reports: no symptoms reported Neurological: reports: no symptoms reported Psychiatric: reports: no symptoms reported Endocrine: reports: no symptoms reported Hematologic/Lymphatic: reports: no symptoms reported Allergic/Immunologic: reports: no symptoms reported All Other Systems: Reviewed and Negative Past History - Adult - PAST MEDICAL HISTORY-ADULT Review of Records: reports: Nursing Assessment Review, Medications Reviewed, Social history reviewed & non-contributory. Major Childhood Illnesses: reports: denies history Cardiovascular: reports: CAD, HTN, hyperlipidemia Respiratory: reports: denies history Gastrointestinal: reports: denies history Obstetrical/Gynecological: reports: denies history Genitourinary: reports: denies history Musculoskeletal: reports: denies history Neurological: reports: denies history Endocrine/Immune: reports: Diabetes Other Conditions: reports: denies history - PRIOR SURGERIES/PROCEDURES Surgical/Procedure History: reports: cardiac stent, back/neck - IMMUNIZATION STATUS Childhood Immunizations: See Nurse Assessment Flu Vaccine: See Nurse Assessment - FAMILY HISTORY Family History: reviewed, not pertinent Physical Exam-General - PHYSICAL EXAM-ADULT Initial Vital Signs Reviewed: Yes - CONSTITUTIONAL General Appearance: appears well, alert, obese. negative: anxious, combative - EYES Eyes: PERRL/EOMI, pink conjunctivae. negative: photophobia - HEAD, EARS, NOSE, MOUTH & THROAT HENMT: normocephalic/atraumatic, moist mucous membranes. negative: angioedema - RESPIRATORY Respiratory: chest non-tender, lungs clear, normal breath sounds. negative: stridor, wheezing - CARDIOVASCULAR Cardiovascular: normal peripheral pulses, regular rate, rhythm, no edema. negative: bradycardia, tachycardia - GASTROINTESTINAL (ABDOMEN) Abdominal Exam: normal bowel sounds, non tender, soft. negative: rebound, tenderness - MUSCULOSKELETAL Back Exam: normal inspection, no CVA tenderness, no vertebral tenderness Extremity: normal inspection. negative: deformity - SKIN Integumentary: normal color. negative: diaphoresis, jaundice - PSYCHIATRIC Psych/Mental Status: normal mood/affect, oriented x 3. negative: anxious, disheveled - HEART Score HEART Score: History: Moderately Suspicious HEART Score: ECG: Non-Specific Repolarization Disturbance/LBBB/PM HEART Score: Age: > or = 65 Years HEART Score: Risk Factors for Atherosclerotic Disease: 1 or 2 Risk Factors Progress - PLAN OF CARE/RESULTS Progress/Plan/Lab Results: Vital Signs - 8 hr 06/20/19 12:23 06/20/19 13:12 06/20/19 13:14 Temperature 97.9 F Pulse Rate 67 82 80 Respiratory Rate 20 19 22 Blood Pressure 161/87 172/77 O2 Sat by Pulse Oximetry 89 L 98 98 06/20/19 13:42 06/20/19 14:00 06/20/19 14:27 Temperature Pulse Rate 77 85 76 Respiratory Rate 18 15 18 Blood Pressure 145/78 133/55 O2 Sat by Pulse Oximetry 96 97 96 06/20/19 15:00 06/20/19 16:00 Temperature Pulse Rate 70 67 Respiratory Rate 14 17 Blood Pressure O2 Sat by Pulse Oximetry 97 97 Laboratory Results - last 24 hr 06/20/19 06/20/19 06/20/19 12:40 12:40 12:40 WBC 10.34 RBC 4.81 Hgb 13.7 L Hct 43.7 MCV 90.9 MCH 28.5 MCHC 31.4 L RDW Std Deviation 13.0 Plt Count 236 MPV 10.8 H Immature Gran % (Auto) 0.2 Neut % (Auto) 67.7 Lymph % (Auto) 18.5 L Woodward % (Auto) 11.5 H Eos % (Auto) 1.6 Baso % (Auto) 0.5 Immature Gran # (Auto) 0.02 Neut # (Auto) 7.00 H Lymph # (Auto) 1.91 Woodward # (Auto) 1.19 H Eos # (Auto) 0.17 Baso # (Auto) 0.05 D-Dimer, Quantitative 0.54 H Sodium 141 Potassium 3.2 L Chloride 88 L Carbon Dioxide 38 H Anion Gap 15 BUN 22 Creatinine 1.1 Estimated GFR/1.73 m2 > 60 BUN/Creatinine Ratio 20 Glucose 148 H Calculated Osmolality 287 Calcium 9.6 Total Bilirubin 0.32 AST 22 ALT 34 Alkaline Phosphatase 128 H Creatine Kinase 45 Troponin T Jhe-B-Afovxjvgvxb Pept Total Protein 6.8 Albumin 4.1 Globulin 2.7 Albumin/Globulin Ratio 1.5 06/20/19 06/20/19 12:40 12:40 WBC RBC Hgb Hct MCV MCH MCHC RDW Std Deviation Plt Count MPV Immature Gran % (Auto) Neut % (Auto) Lymph % (Auto) Woodward % (Auto) Eos % (Auto) Baso % (Auto) Immature Gran # (Auto) Neut # (Auto) Lymph # (Auto) Woodward # (Auto) Eos # (Auto) Baso # (Auto) D-Dimer, Quantitative Sodium Potassium Chloride Carbon Dioxide Anion Gap BUN Creatinine Estimated GFR/1.73 m2 BUN/Creatinine Ratio Glucose Calculated Osmolality Calcium Total Bilirubin AST ALT Alkaline Phosphatase Creatine Kinase Troponin T < 0.010 Vge-V-Sbahrkyyolz Pept 414 H Total Protein Albumin Globulin Albumin/Globulin Ratio Orders Category Date Time Status CHEST-1 VIEW [RAD] Stat Exams 06/20/19 12:32 Completed CBC WITH ELECTRONIC DIFF [HEME] Stat Lab 06/20/19 12:40 Completed CK PROFILE [SP CHEM] Stat Lab 06/20/19 12:40 Completed COMPREHENSIVE METABOLIC PANEL [CHEM] Stat Lab 06/20/19 12:40 Completed D-DIMER [COAG] Stat Lab 06/20/19 12:40 Completed PRO B-NATRIURETIC PEPTIDE Stat Lab 06/20/19 12:40 Completed TROPONIN T Stat Lab 06/20/19 12:40 Completed Result Diagrams: 06/20/19 12:40 06/20/19 12:40 - EKG 1 Time of EKG reading by physician:: 12:23 EKG Read and Signed by:: Alexi Ayon EKG Interpretation (*Must complete 3 of following elements*): Abnormal (possible inferior infarct) Rate: 75 Rhythm: nsr - XRAY 1 XRAY: Bilateral XRAY Study: Chest Impression: See EMR Report (IMPRESSION: Improvement from prior. Electronically signed by Rojas Harrison 06/20/2019 1:18 PM) - CONSULTS/PCP/HOSPITALIST Notification #1 *Consult/PCP/Hospitalist*: Dr. Diaz paged@[phone];returned @1500 Time Discussed: 15:00 Consult Disposition: other (will see upstairs after admitted) #2 Consult: Dr. Nelson paged@[phone];returned@1517 Time Discussed: 15:17 Consult Disposition: Admit (accepted pt) Departure - Departure Date of Disposition Decision: 06/20/19 Time of Disposition Decision: 15:18 DIAGNOSIS: Chest pain Qualifiers: Chest pain type: unspecified Qualified Code(s): R07.9 - Chest pain, unspecified Disposition: ADMITTED INPATIENT 09 Certified Medical Emergency: Emergent Condition: Stable Additional Instructions: ED Follow Up Instructions: You have been treated by a care provider in the Emergency Department. These instructions are being provided to you so you can have an understanding of how to care for yourself upon discharge. Upon discharge from the Emergency Department, you are responsible for making arrangements for follow-up care by a physician of your choice. Take all prescribed medications as directed. Return to the Emergency Department immediately for any new or worsening symptoms. You may call the Physician Referral phone number at [phone] to obtain a list of Physicians who are taking new patients. Referrals and Follow-Ups: Nneka Nelson MD [Primary Care Provider] - - Critical Care Note This patient required my direct & personal management of CC.: No Attestation - Physician/ DIAMANTE Attestation Patient care was provided by Advanced Practice Provider:: No The physician spent face to face time with patient:: Yes Advanced Practice Provider documentation review:: Supervising physician onsite and consulted in the evaluation and care of this patient. The physician did have a face to face encounter with the patient. This chart was documented by the indicated scribe, (Sarah Stanton Scribe) and accurately reflects the services I performed and decisions made by me, Alexi Ayon MD, as attested by the provider's signature.
[2019-06-20] MEDS ORDERED: ROBITUSSIN-DM PO PRN (19:30)
[2019-06-20] MEDS ORDERED: KLOR-CON PO ONE (21:38)
[2019-06-20] MEDS: NS 1,000 ML IV SCH (21:45)
[2019-06-20] MEDS: LOVENOX SUBQ SCH (22:24)
--- NOTE | 2019-06-20 22:44 | HISTORY AND PHYSICAL ---
CHIEF COMPLAINT: Shortness of breath, chest pain. HISTORY OF PRESENT ILLNESS: He is a 68-year-old white gentleman with a known history of moderate aortic stenosis; CAD, multiple stents; bilateral carotid stenosis, right worse than left side. Recently discharged 3 days ago, came back to the ER with chest pain, shortness of breath and not feeling good. The patient was seen by Dr. Verdugo. The patient was sent home, hypostatic pneumonia, with Levaquin. Since then he was not doing very well. He was also placed on home oxygen. ER workup was essentially unremarkable. ER physician discussed with Dr. Verdugo. Probably needs left heart catheterization. As a result, he was admitted in the ICU. The patient is very noncooperative in the emergency room. D-dimer is slightly elevated. He is showing some PVCs. PAST MEDICAL HISTORY: 1. Morbid obesity. 2. Coronary artery disease. 3. Type 2 diabetes. 4. Hypertension. 5. Sleep apnea. 6. Hyperlipidemia. 7. Osteoarthritis. 8. PAD. 9. Mild to moderate aortic stenosis. 10. Right internal carotid artery stenosis, worse than the left side. PAST SURGICAL HISTORY: Multiple stents, EGD in 2013, sinus surgery, back surgery, transesophageal echocardiography from the previous admission. MEDICATIONS: Aspirin 325 daily; Zocor 20 daily; lisinopril/hydrochlorothiazide 20/12.5 p.o. b.i.d.; Coreg 12.5 daily; metformin 500 b.i.d.; discontinued Cardizem; Cardura 1 mg p.o. b.i.d.; Lasix 20 daily; Levaquin 500 daily. ALLERGIES: Not known. SOCIAL HISTORY: He is , lives in [place]. No smoking. No alcohol. Living Will: Do Not Resuscitate/Allow Natural . FAMILY HISTORY: Pertinent for coronary artery disease. REVIEW OF SYSTEMS: HEENT: No headache, no vision problem. No earache. No sore throat. Neck: No goiter. No lymphadenopathy. No bruits. Cardiopulmonary: Chest pain, shortness of breath. No PND, no orthopnea, no swelling of legs. Gastrointestinal: No nausea, vomiting or abdominal pain. Genitourinary: No history of hesitancy, frequency or dysuria. Neurologic: No focal symptoms or weakness. PHYSICAL EXAMINATION: VITAL SIGNS: Blood pressure is slightly elevated. Pulse 94. On 4 L nasal cannula, 95%. Five feet 6 inches, 265 pounds. HEENT: Atraumatic, normocephalic. Pupils equal and react to light. TMs are normal. Nose and throat within normal limits. NECK: Supple. No lymphadenopathy. No goiter. CHEST: Bilateral air entry. HEART: Sounds are regular. No murmur. Systolic murmur 2/6 in the aortic area. ABDOMEN: Belly is soft, obese, nontender. Suboptimal exam. RECTAL: Deferred. EXTREMITIES: No peripheral edema or cyanosis. NEUROLOGIC: No obvious neurological deficits. LABORATORY DATA: CBC: White cell count 10, hematocrit 43, platelets 236,000. D-dimer 0.5. Sodium 140, potassium 3.2, chloride 88, BUN 22, creatinine 1.1, glucose 148. Cardiac enzymes and proBNP were normal. DIAGNOSTIC DATA: Chest x-ray: Improving bilateral atelectasis. ASSESSMENT AND PLAN: 1. A 68-year-old white male recently discharged, continues to have shortness of breath, chest pain. Pneumonia is better. Recent stress test and echocardiogram did not show any reversible ischemia and moderate aortic stenosis. Plan is gentle hydration. NPO after midnight. Left heart catheterization as well as right heart catheterization. We will quantify the aortic valve disease as well as coronary artery disease. 2. D-dimer slightly elevated. Based on age adjusted, is not a pulmonary embolism. 3. Reconcile home medicines. Recently treated for pneumonia, on Levaquin and guaifenesin. 4. Hypokalemia. Replace the potassium. 5. Deep venous thrombosis prophylaxis with Lovenox. 6. Apparently his talked to Dr. Verdugo. We will admit in intensive care unit. Planning for right and left heart catheterization. 7. Repeat the labs in the morning. cc: Faustino Nelson MD
[2019-06-21 04:53] LABS: BASO# 0.05 X1000 (0.0-0.2); BASO% 0.5 % (0.0-0.8); EOS# 0.17 X1000 (0.0-0.7); EOS% 1.8 % (0.0-10.0); HEMATOCRIT 45.4 % (42.0-52.0); IMM GRAN# 0.03 X1000 (0.0-0.04); IMM GRAN% 0.3 % (0.0-0.5); LYMPH# 1.98 X1000 (1.2-3.4); LYMPH% 20.5 % (20.5-51.1); MCH 28.2 PG (27-31); MCHC 30.8 g/dL (33-37); MCV 91.5 FL (81-99); MONO# 1.16 X1000 (0.11-0.59); MPV 10.5 FL (7.4-10.4); NEUT# 6.29 X1000 (1.4-6.5); NEUT% 64.9 % (42.2-75.2); PLT 244 X1000 (130-400); RBC 4.96 XMIL (4.7-6.1); WBC 9.68 X1000 (4.8-10.8)
[2019-06-21 06:17] LABS: AGAP 16; BUN 18 mg/dL (8-22); CALCIUM 9.4 mg/dL (8.8-10.2); CHLORIDE 92 mmol/L (98-107); CK PROFILE 67 U/L (24-204); COSMO 291; CREATININE 1.1 mg/dL (0.7-1.2); ESTIMATED GFR > 60; GLUCOSE 139 mg/dL (70-104); POTASSIUM 3.7 mmol/L (3.5-5.1); SODIUM 144 mmol/L (136-145); TCO2 36 mmol/L (25-35)
--- NOTE | 2019-06-21 09:18 | EKG Report ---
Test Performed on : 06/20/2019 12:23:26 PM Test Reason : ED. NO EKG ORDER FOR MUSE Blood Pressure : / mmHG Vent. Rate : 075 BPM Atrial Rate : 075 BPM P-R Int : 154 ms QRS Dur : 100 ms QT Int : 392 ms P-R-T Axes : 044 019 048 degrees QTc Int : 437 ms Normal sinus rhythm. Possible Inferior infarct (cited on or before 11-JUN-2019) Abnormal ECG When compared with ECG of 11-JUN-2019 06:17, premature ventricular complexes. are no longer present Unconfirmed Result
[2019-06-21] MEDS: MEVACOR PO SCH ×2 (10:40→16:19)
[2019-06-21] MEDS: CARDURA PO SCH ×2 (10:40→16:19)
[2019-06-21] MEDS: COREG PO SCH ×2 (10:41→16:19)
[2019-06-21] MEDS: LEVAQUIN PO SCH ×2 (10:41→16:19)
[2019-06-21] MEDS: PRINZIDE 20/12.5MG PO SCH ×2 (10:41→16:19)
[2019-06-21] MEDS ORDERED: HEPARIN 1000 UNITS/NS 2,000 UNIT/1,000 ML IV.SOLN ONE (11:21)
[2019-06-21] MEDS ORDERED: XYLOCAINE 1% ONE (11:21)
--- NOTE | 2019-06-21 11:52 | CARDIOLOGY CONSULTATION ---
DATE: 06/21/2019 CHIEF COMPLAINT ON PRESENTATION: Shortness of breath and epigastric/sternal discomfort. HISTORY OF PRESENT ILLNESS: Mr. Robles is a 68-year-old gentleman with a recent admission to the hospital. He has a history of coronary artery disease and previous stents many years ago. He was recently in the hospital and had an evaluation including a transesophageal echocardiogram which demonstrated a valve area of 1.5 cm2 on the aortic valve, consistent with moderate aortic stenosis. This was consistent with echocardiograms previously noted on the patient. In addition, he had myocardial perfusion imaging which demonstrated a moderate-sized, moderate-grade, fixed defect in the inferior apical wall as well as inferolateral wall. This was suggestive of scar. His EF was 51%, with some hypokinesis noted in the inferior wall. The patient was treated for pneumonia and was discharged home. He then noted yesterday morning, before eating, some burning discomfort that lasted for around 2 hours in the epigastric/lower sternal area. Again, he had not eaten recently. There was no exertional component associated with this. The patient reported this was consistent with previous symptoms that he had with an KS apparently many years ago. PAST MEDICAL HISTORY: Significant for: 1. Coronary artery disease with a history of PCI before. I do not have any records of this. This was apparently back in 2003. Apparently, he had circumflex and RCA stents documented at that time. Again, no records available for this procedure. 2. History of aortic stenosis. Most recent gradients were in the moderate range with a transthoracic suggesting a mean gradient of 26 and a valve area of 1.5 cm2 by planimetry on a transesophageal echocardiogram on June 13. 3. Hypertension. 4. Hyperlipidemia. 5. Diabetes. 6. Peripheral vascular disease with bilateral carotid artery disease. 7. Morbid obesity. 8. Recent hospital admission for pneumonia. SOCIAL HISTORY: He is . His is present in the room. He does not smoke. FAMILY HISTORY: Significant for hypertension. REVIEW OF SYSTEMS: A 10 system review of systems is negative except for those things mentioned in the HPI. PHYSICAL EXAMINATION: The patient is afebrile presently. His heart rate is 66. His blood pressure is 109/59. His O2 saturation has been in the low to mid 90s on anywhere from 2 to 4 L of oxygen. General: He is in no acute distress. HEENT: Oropharynx is moist. Poor dentition. Eye examination shows pink conjunctivae and white sclerae. Neck: Examination shows no obvious thyromegaly or thyroid tenderness. Cardiovascular: He sounds to be in a regular rate and rhythm with a 2/6 systolic murmur, best heard at the right upper sternal border, consistent with his history of aortic stenosis. He has no lower extremity edema. Chest Examination: He had some mild rales in the bilateral bases. He has no increased work of breathing. Abdomen: Soft, nontender, nondistended. He has no obvious organomegaly. Skin Examination: Warm and dry throughout, without any rashes. Neurological: He is moving all extremities well. He has no lateralizing deficits. Psychiatric: Alert, oriented, pleasant. Normal mood and affect. PERTINENT DATA: His chest x-ray shows improvement in linear atelectasis at the right lung base with some stable linear atelectasis in the left. Heart size and vascularity appeared normal from previous. His EKG reviewed by me shows sinus rhythm. He has no signs of ischemic changes or previous infarct on this study. His lab data demonstrates a white count of 9.7, hematocrit 45, his platelet count was 244,000. His D-dimer was 0.54. His sodium is 144, potassium is 3.7, BUN 18, creatinine is 1.1. His cardiac enzymes and CKs are negative times multiple sets. His proBNP is 595. ASSESSMENT: Mr. Robles is a 68-year-old gentleman with moderate aortic stenosis who presented with somewhat atypical chest pain. PLAN: He has fixed defects on his nuclear scan from last visit. Considering his ongoing symptoms and history of coronary artery disease, we will proceed with cardiac catheterization. Risks, benefits, and alternatives were explained to the patient. He agrees to proceed. Notably, his enzymes have been negative. His chest x-ray is relatively unremarkable and his EKG is negative for any ischemic changes. cc: MD Faustino Jeong MD
[2019-06-21] MEDS ORDERED: VERSED ONE (12:56)
[2019-06-21] MEDS ORDERED: NS 1,000 ML ONE (12:57)
[2019-06-21] MEDS ORDERED: ANESTHESIA PB SET 88 IN 5742 ONE (12:57)
[2019-06-21] MEDS ORDERED: DILAUDID ONE (12:57)
--- NOTE | 2019-06-21 14:12 | CARDIAC CATH REPORT ---
PROCEDURE NAME: - Cardiac catheterization. INDICATION: Patient with a history of coronary artery disease with recurrent symptoms suggesting possible unstable angina. PROCEDURES PERFORMED: 1. Left heart catheterization. 2. Selective coronary angiography. 3. Left ventriculogram. PROCEDURE DETAIL: 1. Mr. Robles was brought to the catheterization laboratory in fasting state. Informed consent was obtained, prepped in usual fashion. He was anesthetized over the right radial artery and after Hao's test was proved adequate, a 5-Tamazight sheath was placed via true Seldinger technique. Radial cocktail was administered. Catheters were introduced. Hemodynamic measurements made in the ascending thoracic aorta. Coronary angiography was performed in multiple views using JL3.5 and JR4 diagnostic catheters. Left heart catheterization was performed using the JR4. At conclusion of procedure all sheaths and catheters were removed. TR band was left inflated at 9 mL of air with good capillary refill, good hemostasis, 5-10 mL of blood loss, 90 mL of IV contrast. No apparent complications. FINDINGS: 1. Left main originates from the left coronary cusp. There is a distal 10% to 20% lesion. 2. Left anterior descending has a 80% proximal lesion just after a very early originating 1st diagonal. The mid and distal vessel has minimal luminal irregularities. 3. The circumflex has minimal luminal irregularities in the proximal, mid and distal vessel. 4. Right coronary has a proximal patent stent with minor in-stent luminal irregularities and 40% to 50% diffuse disease in the mid and distal vessel. The right coronary artery is dominant. 5. Left ventriculogram demonstrates an EF of 60% with normal wall motion. 6. Aortic blood pressure 174/80 with LVEDP of 15. 7. Aortic blood pressure is 151/68 with a mean of 102. ASSESSMENT: Mr. Robles is a 68-year-old gentleman with a history of coronary artery disease who presented with unstable angina symptoms. PLAN: We are pending evaluation of the films by the Interventional Service at [facility] and potential intervention to the left anterior descending. We will escalate his statin therapy and place him on amlodipine 2.5 mg daily. cc: MD Faustino Jeong MD
[2019-06-21] MEDS: NS 1,000 ML IV SCH (15:51)
[2019-06-21] MEDS: LOVENOX SUBQ SCH (20:46)
[2019-06-21] MEDS ORDERED: LIPITOR PO SCH (21:00)
--- NOTE | 2019-06-21 21:51 | PROGRESS NOTE ---
DATE: 06/21/2019 SUBJECTIVE: The patient has left heart catheterization showed LAD 80% lesion waiting for PCI in [place]. Currently is stable. Occasional PVCs. PHYSICAL EXAMINATION: Vital signs: Temperature is 97 degrees. Vitals are stable. HEENT Exam: Within normal limits. Neck: Supple. Chest: Clear. Heart: Sounds are regular. Abdomen: Belly is soft, nontender. INVESTIGATIONS: CBC: White cell count 9.6, hematocrit 45, platelets 244,000. Sodium 144, potassium 3.7, BUN 18, creatinine 1.1, glucose 139, calcium 9.4. Cardiac enzymes were negative. ProBNP 595. ASSESSMENT AND PLAN: Exertional shortness of breath. Negative scan. Left heart catheterization findings discussed with the patient. Discussed the plan of care transferring to the [facility] for PCI and continue present treatment as per Dr. Verdugo and hypostatic pneumonia on [facility], and we will follow up after PCI from [facility] for secondary prevention. Also awaiting evaluation of carotid stenosis down the line by Dr. Collazo. LEVEL OF DOCUMENTATION: 25 minutes. cc: Faustino Nelson MD
[2019-06-22 05:33] LABS: BASO# 0.03 X1000 (0.0-0.2); BASO% 0.3 % (0.0-0.8); EOS# 0.17 X1000 (0.0-0.7); EOS% 1.9 % (0.0-10.0); HEMATOCRIT 42.8 % (42.0-52.0); HEMOGLOBIN 13.1 g/dL (14.0-18.0); LYMPH# 1.58 X1000 (1.2-3.4); LYMPH% 17.6 % (20.5-51.1); MCH 28.5 PG (27-31); MCHC 30.6 g/dL (33-37); MONO# 1.16 X1000 (0.11-0.59); MONO% 12.9 % (1.7-9.3); MPV 10.9 FL (7.4-10.4); NEUT# 6.05 X1000 (1.4-6.5); NEUT% 67.3 % (42.2-75.2); PLT 226 X1000 (130-400); WBC 8.99 X1000 (4.8-10.8)
[2019-06-22 05:42] LABS: INR 1.14; PROTIME 14.7 Seconds (11.0-16.0)
[2019-06-22 06:00] LABS: AGAP 11; BUN 17 mg/dL (8-22); CALCIUM 9.1 mg/dL (8.8-10.2); CHLORIDE 93 mmol/L (98-107); COSMO 286; ESTIMATED GFR > 60; GLUCOSE 127 mg/dL (70-104); MAGNESIUM 1.8 mg/dL (1.5-2.7); SODIUM 142 mmol/L (136-145); TCO2 38 mmol/L (25-35)
[2019-06-22] MEDS ORDERED: NORVASC PO SCH (09:00)
[2019-06-22] MEDS ORDERED: POTASSIUM CHLORIDE 20% LIQUID PO ONE (09:01)
[2019-06-22] MEDS: CARDURA PO SCH (09:12)
[2019-06-22] MEDS: PRINZIDE 20/12.5MG PO SCH (09:13)
[2019-06-22] MEDS: LEVAQUIN PO SCH (09:13)
[2019-06-22] MEDS: COREG PO SCH (09:13)
[2019-06-22 10:24] VITALS: BP 113/62
--- NOTE | 2019-06-23 06:17 | DISCHARGE SUMMARY ---
ADMISSION DATE: 06/20/2019 DISCHARGE DATE: 06/22/2019 DISCHARGING DIAGNOSIS: Exertional shortness of breath due to 80% proximal left anterior descending stenosis. SECONDARY DIAGNOSES: 1. Pickwickian syndrome. 2. Carotid artery disease with existing heart disease. 3. Type 2 diabetes. 4. Hypertension. 5. Sleep apnea. 6. Hyperlipidemia. 7. Osteoarthritis. 8. Peripheral arterial disease. 9. Vyac-bp-hybsxdxd aortic stenosis. 10. Right internal carotid artery stenosis, hemodynamically significant. CONSULTS: Dr. Verdugo. PROCEDURES: Left heart catheterization. Findings: LAD 80% proximal lesion after the diagonal branch, RCA patent stent, EF 60%. BRIEF HISTORY: Please see the H and P that was done on the day of admission. In brief, he is a 68-year-old white gentleman basically came back after recent discharge and he had a negative stress test and transesophageal echo for evaluation of aortic stenosis with exertional shortness of breath and chest discomfort associated with PVCs. Initial workup was negative. The patient was admitted in ICU for unstable angina. Cardiology consult was obtained. The patient was pain- free and the following day left heart catheterization was done. The patient was transferred to [facility] for PCI and intervention of LAD lesion. At some point after he recovers, the patient also needs right internal carotid artery stenosis endarterectomy by Dr. Collazo. He also needs to continue to monitor the moderate aortic stenosis down the line. LABS: CBC: White cell count 8.9, hematocrit 42.8, platelets 226,000. PT 14, INR 1.14. Sodium 142, potassium 3.0, BUN 17, creatinine 1.0, glucose 127. Cardiac enzymes were normal. ProBNP was slightly elevated. EKG, normal sinus, nothing acute. DISCHARGE INSTRUCTIONS: 1. Doxazosin 2 mg daily. 2. Lovastatin 20 daily. 3. Lisinopril/hydrochlorothiazide 20/12.5 daily. 4. Metformin 500 p.o. b.i.d. 5. Coreg 12.5 p.o. b.i.d. 6. Will address the secondary prevention after he comes back from PCI from [facility]. 7. Aspirin 325 daily. 8. Will follow up in my office from [place]. cc: MD Dr. Kartik Villatoro
== END 2019-06-22 10:40 | disposition short-term general hospital (02) | DRG 287 ==
LOC: ED 12:11 → ICU 20:28
PROVIDERS: ADMIT Internal Medicine; ATTEND Internal Medicine